=== PATIENT | female | born 1990 | race Two or more races ===

== ENCOUNTER 2021-06-02 08:15 | Outpatient (REF) | payer OTHER, SELFPAY ==
[2021-06-02 09:25] LABS: COVID-19 Test Positive (Negative); IDNOW Serial# 55D5AD1C
== END 2021-06-02 08:16 | disposition home or self-care (01) ==
LOC: HO.LAB 08:15
PROVIDERS: Visit Provider Internal Medicine
DX: Z20.822 Contact with and (suspected) exposure to COVID-19 (principal)
CPT/HCPCS: 36415; 87635; C9803

== ENCOUNTER 2021-06-14 08:22 | Outpatient (REF) | payer OTHER, SELFPAY ==
[2021-06-14 09:12] LABS: Binax Internal Control QC Valid; Binax Now Covid-19 Ag Negative (Negative)
== END 2021-06-14 08:23 | disposition home or self-care (01) ==
LOC: HO.LAB 08:22
PROVIDERS: Visit Provider Internal Medicine
DX: Z20.822 Contact with and (suspected) exposure to COVID-19 (principal)
CPT/HCPCS: C9803

== ENCOUNTER 2021-10-17 17:38 | Emergency (ER) | payer OTHER, SELFPAY ==
--- NOTE | 2021-10-17 | ECG_ITS ---
Test Reason : chest pressure Blood Pressure : / mmHG Vent. Rate : 083 BPM Atrial Rate : 083 BPM P-R Int : 162 ms QRS Dur : 094 ms QT Int : 360 ms P-R-T Axes : 028 011 018 degrees QTc Int : 423 ms Normal sinus rhythm Normal ECG When compared with ECG of 29-FEB-2020 20:44, No significant change was found Referred By: Generic ED Physician Electronically Signed By:DEMARCUS KAISER
--- NOTE | ~2021-10-17 | XR_ITS ---
EXAMINATION: PORTABLE CHEST 1 VIEW CLINICAL INFORMATION: chest pressure . COMPARISON: No recent pertinent prior studies are available for comparison. TECHNIQUE: Portable frontal view of the chest was obtained. FINDINGS: The lungs are mildly hypoexpanded. No focal infiltrate, effusion, edema, or pneumothorax. Cardiac and mediastinal silhouettes are within normal limits for technique. No acute bony abnormality seen. XR/XR chest 1V IMPRESSION: Mildly hypoexpanded but no acute process otherwise.
[2021-10-17 17:43] VITALS: BP 185/82; PULSE 85; RESP 18; TEMP 36.1; O2SAT 98; BMI 32.5
[2021-10-17 17:56] LABS: MANUAL DIFF FLAG NO
[2021-10-17 17:59] LABS: Basophils Absolute Auto 0.1 X10*3/uL (0.0-0.2); Basophils Percent Auto 0.6 % (0-2); Eosinophils Absolute Auto 0.2 X10*3/uL (0.0-0.4); Eosinophils Percent Auto 1.2 % (0-4); Hematocrit 34.8 % (37.0-47.0); Hemoglobin 11.5 g/dl (12.0-16.0); Imm Gran Abs Auto 0.05 X10*3/uL (0.00-0.03); Imm Gran Pct Auto 0.4 % (0.0-0.4); Lymphocytes Absolute Auto 2.9 X10*3/uL (1.2-4.9); Lymphocytes Percent Auto 20.8 % (20-40); Mean Corpuscular Hemoglobin 29.7 pg (27.0-33.0); Mean Corpuscular Volume 89.9 fL (80.0-98.0); Mean Platelet Volume 8.6 fL (9.4-12.3); Monocytes Absolute Auto 0.7 X10*3/uL (0.1-1.2); Monocytes Percent Auto 5.2 % (2-11); Neutrophils Absolute Auto 10.2 x10*3/uL (2.0-8.3); Neutrophils Percent Auto 71.8 % (45-73); Platelet Count 343 X10*3/uL (160-400); Red Blood Count 3.87 X10*6/uL (4.20-5.50); Red Cell Distribution Width 13.3 % (11.0-16.0); White Blood Count 14.1 X10*3/uL (4.8-10.8)
[2021-10-17 18:14] LABS: Anion Gap 11 (12-20); Blood Urea Nitrogen 9 mg/dL (9-16); Calcium 9.7 mg/dL (8.4-10.2); Carbon Dioxide 25 mmol/L (22-29); Chloride 104 mmol/L (96-108); Creatinine Clr Calc Pharmacy 156.9; Estimated Glomerular Filt Rate > 60; Glucose Random 92 mg/dL (60-115); Potassium 3.8 mmol/L (3.3-5.1); Sodium 136 mmol/L (135-145)
[2021-10-17 18:19] LABS: Troponin-I High Sensitivity < 3.5 ng/L (<3.5-17.0)
== END 2021-10-17 22:15 | disposition left against medical advice (07) ==
PROVIDERS: Emergency Provider Emergency Medicine; PCP Internal Medicine
DX: R07.89 Other chest pain (principal); M54.2 Cervicalgia; R51.9 Headache, unspecified; Z79.899 Other long term (current) drug therapy
CPT/HCPCS: 36415; 71045; 80048; 84484; 85025; 93005; 99281; 99283

== ENCOUNTER 2021-10-18 09:56 | Emergency (ER) | payer OTHER, SELFPAY ==
--- NOTE | ~2021-10-18 | CT_ITS ---
EXAMINATION: CT HEAD WITHOUT CONTRAST CLINICAL INFORMATION: Headache. Tongue and bilateral hand numbness. COMPARISON: Radius head CT February 2020 TECHNIQUE: Contiguous axial imaging was performed from the skull base to vertex without intravenous administration of contrast. This CT examination was performed using dose optimization techniques as appropriate, variously including the following: *Automated exposure control *Adjustment of mA and/or kV according to patient size (this includes techniques or standardized protocols for targeted exams where dose is matched to indication/reason for exam; i.e. extremities or head) *Use of iterative reconstruction technique DLP: 795 mGy-cm FINDINGS: There is no evidence of acute intracranial hemorrhage or territorial infarction. No abnormal mass effect or midline shift is seen. Thakur to white matter differentiation is well preserved. No extra-axial fluid collections are identified. The ventricles are normal in size. There is no abnormal attenuation within the brain parenchyma. The osseous structures and soft tissues are normal. The mastoid air cells and visualized portions of the paranasal sinuses are well aerated. CT/CT head/brain wo con IMPRESSION: No acute intracranial pathology.
[2021-10-18 10:34] VITALS: BP 149/80; PULSE 65; RESP 18; TEMP 35.7; O2SAT 99; BMI 32.5
[2021-10-18 11:00] LABS: COVID-19 Test Negative (Negative)
--- NOTE | 2021-10-18 11:18 | ECG_ITS ---
Test Reason : CHEST PAIN Blood Pressure : / mmHG Vent. Rate : 057 BPM Atrial Rate : 057 BPM P-R Int : 162 ms QRS Dur : 102 ms QT Int : 442 ms P-R-T Axes : 023 017 018 degrees QTc Int : 430 ms Sinus bradycardia with sinus arrhythmia Otherwise normal ECG When compared with ECG of 17-OCT-2021 17:42, No significant change was found Referred By: Lauryn Tucker Electronically Signed By:DEMARCUS KAISER
--- NOTE | 2021-10-18 11:20 | ED_ITS ---
HPI - General Adult General Chief complaint: General Medical Stated complaint: headache blister on tongue Time Seen by Provider: 10/18/21 11:07 Source: patient Mode of arrival: ambulatory History of Present Illness HPI narrative: 31-year-old female with no significant past medical history presenting to the ED complaining of headache radiating down left neck/chest with associated tongue numbness beginning yesterday. Admits symptoms improving since onset. States presented to ED yesterday however LWT'd secondary to wait time. Also reports lightheadedness, paresthesias to bilateral hands, and intermittent visual field changes (denies at present). Also reports low back pain radiating down LLE. Denies injury/trauma or fall, weakness, urinary incontinence/retention. Denies taking AC Onset (ago): day(s) Related Data Previous Rx's Medication Instructions Recorded cetirizine 10 mg capsule (Zyrtec) 10 mg PO DAILY #30 cap 03/09/20 cyclobenzaprine 5 mg tablet 5 mg PO Q8H PRN 5 Days #14 tab 10/18/21 lidocaine 5 % topical patch 1 patch TOPICAL DAILY PRN #30 ea 10/18/21 (Lidoderm) MDD remove after 12 hours naproxen 500 mg tablet 500 mg PO BID PRN 10 Days #20 tab 10/18/21 Allergies Allergy/AdvReac Type Severity Reaction Status Date / Time No Known Allergies Allergy Verified 10/18/21 10:33 [No Known Allergies*] Review of Systems Review of Systems: Constitutional: No Fever, No Chills, No Fatigue, No Malaise ENT/Mouth: No Ear Pain, No Nasal Congestion, No Sinus Pain, No Hoarseness, No sore throat, No Rhinorrhea, No Swallowing Difficulty Eyes: No Eye Pain, No Swelling, No Redness, +Vision Changes (intermittent/resolved) Cardiovascular: No Chest Pain, No SOB, No Edema, No Palpitations Respiratory: No Cough, No Sputum, No Dyspnea Gastrointestinal: No Nausea, No Vomiting, No Diarrhea, No Constipation, No Abdominal pain Genitourinary: No Dysuria, No Urinary Frequency, No Hematuria, No Urinary In continence/retention, No Flank Pain, No Urinary Flow Changes, No Hesitancy Musculoskeletal: No joint pain, No Myalgias, No Joint Swelling Skin: No Skin Lesions, No rash Neuro: No Weakness, + Numbness, + Paresthesias, No Loss of Consciousness, + lightheadedness, + Headache Yes all other systems are reviewed and are negative Neurologic: Denies Abnormal speech present [facility] Past Medical History Attestation statement: The following information was validated with the patient. Social History Social History Advance Directives: No Advance Directives Information Provided: No Physical Exam ED Vital Signs: Vital Signs - 24 hr 10/18/21 10:34 10/18/21 12:01 Temperature 96.2 F L 98.4 F Pulse Rate 65 65 Respiratory Rate 18 14 Blood Pressure 149/80 H 133/61 Pulse Oximetry 99 98 BMI result Body Mass Index 32.5 Const General: cooperative, healthy appearing, no acute distress, well developed, alert and awake Orientation/consciousness: patient oriented x3 Limitations: no limitations HENMT Head: Yes normal to inspection and Yes atraumatic Ears: hearing grossly normal bilaterally General nose exam: Normal external nose present Face and sinus: Yes normal facial exam Throat: Yes posterior oropharynx normal, Yes tonsils normal, Yes uvula midline, No peritonsillar mass and No uvula laterally displaced Eyes General: appearance normal, both eyes and all related structures Pupils: Equal, round and reactive pupils present EOM: EOMs intact bilaterally Neck Other: No midline cervical spinous tenderness or reproducible left-sided tenderness Neck: Yes normal visual inspection, Yes full ROM and Yes no meningeal signs Resp Effort & Inspection: normal respiratory effort and no respiratory distress Auscultation: clear to auscultation bilaterally Cardio Rate: regular rate Heart sounds: S1 normal heart sound present and S2 normal heart sound present GI Inspection: Yes normal to inspection Palpation (GI): Soft to palpation, nontender, no guarding and not rigid General: Yes no CVA tenderness Back/Spine/Pelvis Other: No midline thoracic/lumbar spinous tenderness/step-off or deformity Back: no CVA tenderness Skin Rashes: no rashes Wounds: no wounds Neuro General: patient oriented x3, gait normal, tone normal, moves all extremities, no meningeal signs, no focal motor deficits and CN's II-XI intact bilaterally Cranial nerves: Yes CN's II-XII intact bilaterally, Yes Equal, round and reactive pupils present and Yes Bilaterally intact EOM present Cognition (Neuro): normal cognition Speech: No Abnormal speech present Gait exam (Neuro): Normal gait present Motor exam (neuro): 5/5 motor strength present throughout, Pronator motor function not present and no tremor noted Extrem General: Yes normal to inspection Course Course Course Narrative: -labs unremarkable. Troponin negative. CT head/brain wo con IMPRESSION: No acute intracranial pathology. >> results discussed with patient including worrisome signs and symptoms and strict return precautions in you to close follow-up with PCP Medical Decision Making MDM Narrative Medical decision making narrative: 31-year-old female with no significant past medical history presenting to the ED complaining of headache radiating down left neck/chest with associated tongue numbness beginning yesterday. Also reports lightheadedness, paresthesias to bila teral hands, and intermittent visual field changes. On exam VSS, NAD, nontoxic appearing, no focal neuro deficits, no midline spinous tenderness throughout, no red flag symptoms. Concern for complicated migraine headache vs paresthesias vs ?ICH. Symptoms atypical for CVA/TIA. Lower concern for cervical dissection/CVT Plan: EKG, labs, head CT Case discussed with Dr. Bernard who is in agreement with plan Medical Records Medical records reviewed: Yes I reviewed the patient's medical records. Lab Data Lab results reviewed: Yes I reviewed the patient's lab results. Result diagrams: 10/18/21 11:50 10/18/21 11:50 Labs: Lab Results 10/18/21 10/18/21 10/18/21 Range/Units 10:39 11:50 11:50 WBC 10.6 (4.8-10.8) X10*3/uL RBC 3.94 L (4.20-5.50) X10*6/uL Hgb 11.7 L (12.0-16.0) g/dl Hct 35.3 L (37.0-47.0) % MCV 89.6 (80.0-98.0) fL MCH 29.7 (27.0-33.0) pg MCHC 33.1 (31.0-35.0) g/dl RDW 13.2 (11.0-16.0) % Plt Count 345 (160-400) X10*3/uL MPV 8.6 L (9.4-12.3) fL Immature Gran % (Auto) 0.3 (0.0-0.4) % Neut % (Auto) 74.7 H (45-73) % Lymph % (Auto) 17.5 L (20-40) % [place] % (Auto) 6.1 (2-11) % Eos % (Auto) 0.8 (0-4) % Baso % (Auto) 0.6 (0-2) % Lymph # (Auto) 1.9 (1.2-4.9) X10*3/uL [place] # (Auto) 0.7 (0.1-1.2) X10*3/uL Eos # (Auto) 0.1 (0.0-0.4) X10*3/uL Baso # (Auto) 0.1 (0.0-0.2) X10*3/uL Abs Immat Gran (auto) 0.03 (0.00-0.03) X10*3/uL Absolute Neuts (auto) 7.9 (2.0-8.3) x10*3/uL Absolute Nucleated RBC 0.000 (0.0-0.012) X10*3/uL Nucleated RBC % (auto) 0.0 (0.0-0.2) /100WBC Sodium 138 (135-145) mmol/L Potassium 3.9 (3.3-5.1) mmol/L Chloride 106 (96-108) mmol/L Carbon Dioxide 26 (22-29) mmol/L Anion Gap 10 L (12-20) BUN 8 L (9-16) mg/dL Creatinine 0.62 (0.5-1.4) mg/dL Estim Creat Clear Calc 179.7 Estimated GFR > 60 Random Glucose 101 (60-115) mg/dL Calcium 9.4 (8.4-10.2) mg/dL Magnesium 2.0 (1.6-2.6) mg/dL Total Bilirubin 0.4 (0.0-1.0) mg/dL Direct Bilirubin < 0.2 (0.0-0.5) mg/dL AST 13 (5-31) U/L ALT 14 (0-31) U/L Alkaline Phosphatase 75 (39-117) U/L Troponin I High Sens (<3.5-17.0) ng/L Total Protein 7.3 (6.5-8.0) g/dL Albumin 3.9 (3.5-5.0) g/dL COVID-19 ([facility]) Negative (Negative) COVID-19 Clin Com See Note 10/18/21 Range/Units 11:50 WBC (4.8-10.8) X10*3/uL RBC (4.20-5.50) X10*6/uL Hgb (12.0-16.0) g/dl Hct (37.0-47.0) % MCV (80.0-98.0) fL MCH (27.0-33.0) pg MCHC (31.0-35.0) g/dl RDW (11.0-16.0) % Plt Count (160-400) X10*3/uL MPV (9.4-12.3) fL Immature Gran % (Auto) (0.0-0.4) % Neut % (Auto) (45-73) % Lymph % (Auto) (20-40) % [place] % (Auto) (2-11) % Eos % (Auto) (0-4) % Baso % (Auto) (0-2) % Lymph # (Auto) (1.2-4.9) X10*3/uL [place] # (Auto) (0.1-1.2) X10*3/uL Eos # (Auto) (0.0-0.4) X10*3/uL Baso # (Auto) (0.0-0.2) X10*3/uL Abs Immat Gran (auto) (0.00-0.03) X10*3/uL Absolute Neuts (auto) (2.0-8.3) x10*3/uL Absolute Nucleated RBC (0.0-0.012) X10*3/uL Nucleated RBC % (auto) (0.0-0.2) /100WBC Sodium (135-145) mmol/L Potassium (3.3-5.1) mmol/L Chloride (96-108) mmol/L Carbon Dioxide (22-29) mmol/L Anion Gap (12-20) BUN (9-16) mg/dL Creatinine (0.5-1.4) mg/dL Estim Creat Clear Calc Estimated GFR Random Glucose (60-115) mg/dL Calcium (8.4-10.2) mg/dL Magnesium (1.6-2.6) mg/dL Total Bilirubin (0.0-1.0) mg/dL Direct Bilirubin (0.0-0.5) mg/dL AST (5-31) U/L ALT (0-31) U/L Alkaline Phosphatase (39-117) U/L Troponin I High Sens < 3.5 (<3.5-17.0) ng/L Total Protein (6.5-8.0) g/dL Albumin (3.5-5.0) g/dL COVID-19 ([facility]) (Negative) COVID-19 Clin Com Discharge Plan Discharge Clinical Impression: Headache, Paresthesia, Back pain Patient Disposition: Home, Self-Care Instructions: Acute Headache (DC), Back Pain (ED) Additional Instructions: Your blood work and head CT were reassuring. your back pain is likely musculoskeletal. If headache persists or worsens, you have vision change/loss, weakness or persistent nausea/vomiting please return to the emergency department Your pain is likely musculoskeletal Flexeril is a muscle relaxer, take at night as it makes you drowsy, do not drive, drink alcohol, or operate machinery while taking it Naproxen as an anti-inflammatory / pain medication, take with food Lidoderm patches are numbing patches, apply to painful area In addition take Tylenol at home If symptoms persist or worsen, pain becomes unbearable, you developed urinary retention or incontinence, or weakness return to the ED Prescriptions: New lidocaine [Lidoderm] 5 % adhesive patch,medicated 1 patch topical DAILY MDD remove after 12 hours PRN (Reason: pain) Qty: 30 0RF Rx Instructions: leave on most painful area for up to 12 hrs naproxen 500 mg tablet 500 mg PO BID PRN (Reason: pain) 10 Days Qty: 20 0RF cyclobenzaprine 5 mg tablet 5 mg PO Q8H PRN (Reason: pain (scale score 7-10)) 5 Days Qty: 14 0RF No Action Zyrtec 10 mg capsule 10 mg PO DAILY Qty: 30 0RF Referrals: Po,Kendra Gutierrez MD [Primary Care Provider] - 2 days
[2021-10-18 11:54] LABS: MANUAL DIFF FLAG NO
[2021-10-18 12:01] VITALS: BP 133/61; PULSE 65; RESP 14; TEMP 36.9; O2SAT 98
--- NOTE | 2021-10-18 12:02 | PC.NURSE ---
pt describing mult intermittent sx including lower back pain, headache, numbness in tongue, blurred vision. has no noted neuro deficits at this time. awaits lab results and ct. ambulated to bed with steady gait.
[2021-10-18 12:13] LABS: Alanine Aminotransferase 14 U/L (0-31); Albumin Level 3.9 g/dL (3.5-5.0); Alkaline Phosphatase 75 U/L (39-117); Anion Gap 10 (12-20); Aspartate Amino Transferase 13 U/L (5-31); Bilirubin Direct < 0.2 mg/dL (0.0-0.5); Bilirubin Total 0.4 mg/dL (0.0-1.0); Blood Urea Nitrogen 8 mg/dL (9-16); Calcium 9.4 mg/dL (8.4-10.2); Carbon Dioxide 26 mmol/L (22-29); Chloride 106 mmol/L (96-108); Creatinine Clr Calc Pharmacy 179.7; Estimated Glomerular Filt Rate > 60; Glucose Random 101 mg/dL (60-115); Potassium 3.9 mmol/L (3.3-5.1); Sodium 138 mmol/L (135-145); Total Protein 7.3 g/dL (6.5-8.0)
[2021-10-18 12:15] LABS: Basophils Absolute Auto 0.1 X10*3/uL (0.0-0.2); Basophils Percent Auto 0.6 % (0-2); Eosinophils Absolute Auto 0.1 X10*3/uL (0.0-0.4); Eosinophils Percent Auto 0.8 % (0-4); Hematocrit 35.3 % (37.0-47.0); Hemoglobin 11.7 g/dl (12.0-16.0); Imm Gran Abs Auto 0.03 X10*3/uL (0.00-0.03); Imm Gran Pct Auto 0.3 % (0.0-0.4); Lymphocytes Absolute Auto 1.9 X10*3/uL (1.2-4.9); Lymphocytes Percent Auto 17.5 % (20-40); Mean Corpuscular HGB Conc 33.1 g/dl (31.0-35.0); Mean Corpuscular Hemoglobin 29.7 pg (27.0-33.0); Mean Corpuscular Volume 89.6 fL (80.0-98.0); Mean Platelet Volume 8.6 fL (9.4-12.3); Monocytes Absolute Auto 0.7 X10*3/uL (0.1-1.2); Monocytes Percent Auto 6.1 % (2-11); Neutrophils Absolute Auto 7.9 x10*3/uL (2.0-8.3); Neutrophils Percent Auto 74.7 % (45-73); Platelet Count 345 X10*3/uL (160-400); Red Blood Count 3.94 X10*6/uL (4.20-5.50); Red Cell Distribution Width 13.2 % (11.0-16.0); White Blood Count 10.6 X10*3/uL (4.8-10.8)
[2021-10-18 12:20] LABS: Troponin-I High Sensitivity < 3.5 ng/L (<3.5-17.0)
[2021-10-18] MEDS: Butalb/Acetamin/Caff 50/325/40 TABLET 1 TAB PO (12:46)
== END 2021-10-18 13:15 | disposition home or self-care (01) ==
PROVIDERS: Physician Assistant; Emergency Provider Emergency Medicine; PCP Internal Medicine
DX: R51.9 Headache, unspecified (principal); R07.89 Other chest pain; M54.50 Low back pain, unspecified; Z20.822 Contact with and (suspected) exposure to COVID-19; Z79.899 Other long term (current) drug therapy
CPT/HCPCS: 36415; 70450; 80048; 80076; 83735; 84484; 85025; 87635; 93005; 99283; 99284

== ENCOUNTER 2022-02-10 13:56 | Outpatient (REF) | payer OTHER, SELFPAY ==
[2022-02-10 14:48] LABS: Influenza A PCR NEGATIVE (Negative); Influenza B PCR NEGATIVE (Negative); Resp Syncy Virus RNA Qual PCR NEGATIVE (Negative); SARS COV2 PCR INHOUSE NEGATIVE (Negative)
== END 2022-02-10 13:57 | disposition home or self-care (01) ==
LOC: HO.LNP 13:56
PROVIDERS: Visit Provider Internal Medicine
DX: Z20.822 Contact with and (suspected) exposure to COVID-19 (principal); R43.9 Unspecified disturbances of smell and taste
CPT/HCPCS: 0241U

== ENCOUNTER 2022-02-27 | Outpatient (REF) | payer OTHER, SELFPAY ==
[2022-03-03 13:40] LABS: H Pylori Breath Test Negative (Negative)
== END 2022-02-27 00:01 | disposition home or self-care (01) ==
LOC: HO.LNP
PROVIDERS: Visit Provider Physician Assistant Surgical
DX: Z01.818 Encounter for other preprocedural examination (principal)
CPT/HCPCS: 83013

== ENCOUNTER → 2022-02-27 16:05 | Outpatient (BNVA) | payer OTHER, SELFPAY | PROVIDERS: PCP Internal Medicine; Visit Provider Physician Assistant Surgical | DX: Z11.0 Encounter for screening for intestinal infectious diseases (principal) | CPT/HCPCS: 99211 ==

== ENCOUNTER 2022-03-14 16:18 | Emergency (ER) | payer OTHER, SELFPAY ==
[2022-03-14 16:23] VITALS: BP 128/70; PULSE 61; RESP 16; TEMP 36.7; O2SAT 99; BMI 32.5
== END 2022-03-14 19:04 | disposition left against medical advice (07) ==
PROVIDERS: Emergency Provider Emergency Medicine; PCP Internal Medicine
DX: R21 Rash and other nonspecific skin eruption (principal)
CPT/HCPCS: 99281

== ENCOUNTER → 2022-03-15 15:20 | Outpatient (BNVA) | payer OTHER, SELFPAY | PROVIDERS: PCP Internal Medicine; Referring Provider Internal Medicine; Visit Provider Physician Assistant Surgical | DX: E66.9 Obesity, unspecified (principal); I10 Essential (primary) hypertension; Z68.33 Body mass index [BMI] 33.0-33.9, adult; Z71.3 Dietary counseling and surveillance | CPT/HCPCS: 99212 ==

== ENCOUNTER 2022-03-17 08:58 | Outpatient (REF) | payer OTHER, SELFPAY ==
--- NOTE | ~2022-03-17 | US_ITS ---
EXAMINATION: US COMPLETE ABDOMEN WITH LIVER ELASTOGRAPHY CLINICAL INFORMATION: Obesity, unspecified. COMPARISON: None TECHNIQUE: Real-time imaging of the abdominal viscera. Noninvasive ultrasound liver fibrosis assessment is performed using Alistair ElastPQ point quantification shear wave elastography (2D-SWE) with a C5-2 MHz transducer. Multiple elastography samples are obtained. FINDINGS: PANCREAS: Normal. The visualized pancreatic head and body are normal in appearance. The remainder of the pancreas is obscured from visualization by the overlying bowel gas. ABDOMINAL AORTA: The proximal, middle, and distal aortic segments are normal in caliber. INFERIOR VENA CAVA: Visualized portions are normal. LIVER: The liver demonstrates normal size, contour and echogenicity. No focal lesion or intrahepatic biliary duct dilatation. The right lobe measures 16.3 cm in length. The left lobe measures 10.3 cm in length. Portal flow is hepatopetal. Shear wave liver elastography median stiffness is 1.84 m/s (reference: Normal median stiffness is 1.3 m/s or less). IQR/median stiffness to assess sampling precision is 0.1 (reference: Good quality data set is IQR/median stiffness of 0.15 or less). GALLBLADDER: Normal. The gallbladder is physiologically distended without evidence of stones, sludge, polyps, wall thickening or pericholecystic fluid. COMMON BILE DUCT: Normal in caliber measuring 0.5 cm in diameter. RIGHT KIDNEY: Normal. No hydronephrosis. No renal calculi or focal parenchymal lesions. The kidney measures 12.4 cm in maximum dimension. LEFT KIDNEY: Normal. No hydronephrosis. No renal calculi or focal parenchymal lesions. The kidney measures 12.0 cm in maximum dimension. SPLEEN: The spleen is upper limits of normal measuring 12.8 cm in maximum dimension. FREE FLUID: None. US/US abdomen comp w elastography IMPRESSION: Mild left renal pelvic fullness. No echogenic renal calculi The spleen is upper limits of normal in size. The rest of the abdominal ultrasound is unremarkable. Liver elastography: Median liver stiffness measures 1.84 m/s corresponding to cACLD (suggestive) REFERENCE: Society of Radiologists in Ultrasound Liver Stiffness Thresholds (2020): LIVER STIFFNESS THRESHOLDS: *Liver Stiffness equal or less than 1.3 m/s: High probability of being normal. *Liver Stiffness less than 1.7 m/s: In the absence of other known clinical signs, rules out compensated advanced chronic liver disease. *Liver Stiffness 1.7-2.1 m/s: Suggestive of compensated advanced chronic liver disease but need further test for confirmation. *Liver Stiffness over 2.1 m/s: Rules in compensated advanced chronic liver disease. *Liver Stiffness over 2.4 m/s: Suggestive of clinically significant portal hypertension. QUALITY OF DATA SET: *IQR/Median value equal or less than 0.15 implies a quality data set. *IQR/Median value over 0.15 implies a poor quality data set. SIGNIFICANT CHANGE FROM PRIOR EXAM: Significant change if liver stiffness measurement is 10% or greater from prior exam. OTHER CONSIDERATIONS: The stage of liver fibrosis may be overestimated in the setting of acute hepatitis, liver inflammation, elevated liver function tests, hepatic vascular congestion, obstructive cholestasis, non-fasting state, and infiltrative diseases such as amyloidosis and lymphoma. In some patients with NAFLD, the liver stiffness thresholds for compensated advanced chronic liver disease may be lower. In causes other than viral hepatitis and NAFLD, liver stiffness thresholds are not well established.
[2022-03-17 10:15] LABS: MANUAL DIFF FLAG NO
[2022-03-17 10:35] LABS: Basophils Absolute Auto 0.1 X10*3/uL (0.0-0.2); Basophils Percent Auto 0.7 % (0-2); Eosinophils Absolute Auto 0.1 X10*3/uL (0.0-0.4); Eosinophils Percent Auto 1.4 % (0-4); Hemoglobin 11.7 g/dl (12.0-16.0); Imm Gran Abs Auto 0.02 X10*3/uL (0.00-0.03); Imm Gran Pct Auto 0.3 % (0.0-0.4); Lymphocytes Absolute Auto 1.7 X10*3/uL (1.2-4.9); Lymphocytes Percent Auto 22.7 % (20-40); Mean Corpuscular HGB Conc 33.4 g/dl (31.0-35.0); Mean Corpuscular Hemoglobin 29.5 pg (27.0-33.0); Mean Corpuscular Volume 88.4 fL (80.0-98.0); Mean Platelet Volume 8.9 fL (9.4-12.3); Monocytes Absolute Auto 0.5 X10*3/uL (0.1-1.2); Monocytes Percent Auto 6.6 % (2-11); Neutrophils Percent Auto 68.3 % (45-73); Platelet Count 359 X10*3/uL (160-400); Red Blood Count 3.96 X10*6/uL (4.20-5.50); Red Cell Distribution Width 12.8 % (11.0-16.0); White Blood Count 7.3 X10*3/uL (4.8-10.8)
[2022-03-17 10:42] LABS: Estimated Average Glucose 88 mg/dL; Hemoglobin A1c % 4.7 %
[2022-03-17 11:06] LABS: Alanine Aminotransferase 11 U/L (0-31); Albumin Level 4.2 g/dL (3.5-5.0); Alkaline Phosphatase 76 U/L (39-117); Anion Gap 15 (12-20); Aspartate Amino Transferase 13 U/L (5-31); Bilirubin Total 0.4 mg/dL (0.0-1.0); Blood Urea Nitrogen 10 mg/dL (9-16); C Reactive Protein 1.81 mg/dL (< or = 0.50); Calcium 9.2 mg/dL (8.4-10.2); Carbon Dioxide 24 mmol/L (22-29); Chloride 104 mmol/L (96-108); Cholesterol 173 mg/dL; Estimated Glomerular Filt Rate > 60; Glucose Fasting 94 mg/dL (60-99); HDL Cholesterol 33 mg/dL; Iron 38 mcg/dL (30-160); LDL Cholesterol Calculated 127 mg/dl; Percent Iron Saturation 12 % (15-50); Potassium 4.1 mmol/L (3.3-5.1); Sodium 139 mmol/L (135-145); Total Iron Binding Capacity 306 mcg/dL (228-428); Total Protein 7.6 g/dL (6.5-8.0); Triglycerides 68 mg/dL; Unsaturated Iron Binding 268 ug/dL
[2022-03-17 11:30] LABS: Ferritin 67 ng/mL (10-122); Insulin 10 uU/mL (2-29); TSH reflex Free T4 0.31 uIU/mL (0.32-4.0); Vitamin D 25-OH Total 18.7 ng/mL (>30)
[2022-03-17 11:32] LABS: Folate 15.7 ng/mL (> or = 4.0); Vitamin B12 476 pg/mL (200-900)
[2022-03-17 12:10] LABS: Free T4 (Free Thyroxine) 1.05 ng/dL (0.71-1.85)
[2022-03-19 15:42] LABS: Calcium (PTHI) 9.4 mg/dL (8.6-10.2); PTHI 53 pg/mL (16-77)
[2022-03-22 00:02] LABS: Zinc 65 mcg/dL (60-130)
[2022-03-22 09:52] LABS: Vitamin A 38 mcg/dL (38-98)
[2022-03-22 16:07] LABS: Vitamin B1 8 nmol/L (8-30)
== END 2022-03-17 08:59 | disposition home or self-care (01) ==
LOC: HO.US 08:58
PROVIDERS: Absent Provider Nurse Practitioner Family; Visit Provider Physician Assistant Surgical
DX: Z00.00 Encounter for general adult medical examination without abnormal findings (principal); E66.9 Obesity, unspecified; I10 Essential (primary) hypertension; K21.9 Gastro-esophageal reflux disease without esophagitis
CPT/HCPCS: 36415; 76705; 76981; 80053; 80061; 82306; 82607; 82728; 82746; 83036; 83525; 83540; 83970; 84425; 84439; 84443; 84590; 84630; 85025; 85027; 86140

== ENCOUNTER → 2022-04-11 16:05 | Outpatient (BNVA) | payer OTHER, SELFPAY | PROVIDERS: PCP Internal Medicine; Referring Provider Physician Assistant Surgical; Visit Provider Dietitian, Registered | DX: E66.9 Obesity, unspecified (principal); Z68.31 Body mass index [BMI] 31.0-31.9, adult | CPT/HCPCS: 97802 ==

== ENCOUNTER → 2022-04-21 09:30 | Outpatient (BNVA) | payer OTHER, SELFPAY | PROVIDERS: PCP Internal Medicine; Visit Provider Advanced Practice Midwife | DX: Z30.46 Encounter for surveillance of implantable subdermal contraceptive (principal) | CPT/HCPCS: 99212 ==

== ENCOUNTER → 2022-05-02 16:00 | Outpatient (BNVA) | payer OTHER, SELFPAY | PROVIDERS: PCP Internal Medicine; Referring Provider Physician Assistant Surgical; Visit Provider Counselor Mental Health | DX: F41.1 Generalized anxiety disorder (principal); E66.9 Obesity, unspecified | CPT/HCPCS: 90791 ==

== ENCOUNTER 2022-05-05 08:08 | Outpatient (REF) | payer OTHER, SELFPAY ==
--- NOTE | ~2022-05-05 | FL_ITS ---
EXAMINATION: XR FLUOROSCOPY UPPER GI WITH AIR CLINICAL INFORMATION: Obesity. COMPARISON: None. TECHNIQUE: Routine upper GI air-contrast study was done in upright and lying position. FINDINGS: Following oral administration of thick barium and effervescent granules there is normal propagation bolus from the oral cavity through the pharynx, esophagus into stomach without any evidence of narrowing, stricture or obstruction. No extrinsic compression seen. On placing patient supine and prone lying the course, caliber and peristalsis of the stomach is normal. There is a mild gastroesophageal reflux without hiatal hernia. The mucosal pattern of the esophagus, stomach and the duodenum is normal. FLUOROSCOPY TIME: 1.3 minutes. DOSE AREA PRODUCT: 34.284 uGy-m2 (microgray-meter squared) FL/FL upper GI w air IMPRESSION: Mild gastroesophageal reflux in supine view otherwise unremarkable upper GI exam.
--- NOTE | ~2022-05-05 | XR_ITS ---
EXAMINATION: XR CHEST CLINICAL INFORMATION: Obesity. COMPARISON: None TECHNIQUE: 2 views of the chest were obtained. FINDINGS: No significant abnormality is noted involving the heart, lungs, mediastinum, bony thorax or soft tissues. XR/XR chest 2V IMPRESSION: Unremarkable chest examination.
== END 2022-05-05 08:09 | disposition home or self-care (01) ==
LOC: HO.XRAY 08:08
PROVIDERS: PCP Nurse Practitioner Family; Visit Provider Physician Assistant Surgical
DX: E66.9 Obesity, unspecified (principal); I10 Essential (primary) hypertension
CPT/HCPCS: 71046; 74246

== ENCOUNTER → 2022-05-08 10:23 | Outpatient (BNVA) | payer OTHER, SELFPAY | PROVIDERS: PCP Internal Medicine; Referring Provider Internal Medicine; Visit Provider Surgery | DX: E66.9 Obesity, unspecified (principal); E78.00 Pure hypercholesterolemia, unspecified; I10 Essential (primary) hypertension; F41.1 Generalized anxiety disorder; Z68.30 Body mass index [BMI] 30.0-30.9, adult | CPT/HCPCS: 99202 ==

== ENCOUNTER → 2022-06-06 12:32 | Outpatient (BNVA) | payer OTHER, SELFPAY | PROVIDERS: PCP Internal Medicine; Visit Provider Physician Assistant Surgical | DX: Z13.89 Encounter for screening for other disorder (principal) ==

== ENCOUNTER → 2022-06-09 08:18 | Outpatient (BNVA) | payer OTHER, SELFPAY | PROVIDERS: PCP Internal Medicine; Visit Provider Surgery | DX: E66.9 Obesity, unspecified (principal); F41.1 Generalized anxiety disorder; E78.00 Pure hypercholesterolemia, unspecified; I10 Essential (primary) hypertension; Z68.29 Body mass index [BMI] 29.0-29.9, adult | CPT/HCPCS: 99212 ==

== ENCOUNTER 2022-06-21 06:04 | Day surgery (SDC) | payer OTHER, SELFPAY ==
[2022-06-12 11:14] VITALS: BMI 29.2
--- NOTE | 2022-06-20 | ECG_ITS ---
Test Reason : HTN HLD OBESITY Blood Pressure : / mmHG Vent. Rate : 059 BPM Atrial Rate : 059 BPM P-R Int : 168 ms QRS Dur : 094 ms QT Int : 412 ms P-R-T Axes : 009 016 010 degrees QTc Int : 407 ms Sinus bradycardia with sinus arrhythmia Otherwise normal ECG When compared with ECG of 18-OCT-2021 11:23, No significant change was found Referred By: Asher Parker Electronically Signed By:DIMPLE CORONA MD
--- NOTE | 2022-06-20 10:26 | P.CONAN_ITS ---
Documented by User: Karla Conte NP 06/20/22 13:35 HPI - Anesthesia Eval Consult details Narrative: 32yo F for Gastrectomy Sleeve,EGD,poss diaphragmatic hernia,poss ventral hernia,poss open, PMFSH Active Problems Active Problems: All Active Problems (Updated 06/12/22 @ 10:51 by Maria D Coreas RN) Depressed mood (Acute) Vertigo (Acute) Upper respiratory tract infection (Acute) Adult general medical exam (Acute) Choking sensation (Acute) Encounter for monitoring of etonogestrel implant (Acute) Generalized anxiety disorder (Acute) Vitamin D deficiency (Acute) Hypertension (Acute) Hypercholesterolemia (Acute) Obesity (BMI 30-39.9) (Acute) Past Medical History Medical History Allergic otitis media of both ears Anxiety Gestational hypertension Hypercholesterolemia Hypertension Insomnia Obesity (BMI 30-39.9) Vitamin D deficiency Surgical History Surgical History History of cholecystectomy Right ovarian cyst Social History [facility] Are you a primary long term care phlebotomist to a significant other at home: No Do you presently have visiting nurse or other home services: No Alcohol intake: never Patient Tobacco Use Status: Never used Tobacco e-Cigarette/Vaping Use: Never Used Second Hand Smoke Exposure: No Use of substances other than those prescribed or required for medical reasons: No Have you been hit, kicked, punched, or otherwise hurt by someone within the past year? If so, by whom?: No Are you DNR?: No Advance Directives: No Advance Directives Information Provided: Yes (Sent with pre=op instructions) Advance Directives on File: No Recently lost weight without trying: No How much weight loss: 34pounds or more Nutrition Risks: No Nutritional Risk Patient : No FDLMP: 06/03 : No Poor oral hygiene: No service: No Current occupational status: employed ([employer] Cognitive needs: No Hearing needs: No Vision needs: No Meds Allergies Allergy/AdvReac Type Severity Reaction Status Date / Time No Known Allergies Allergy Verified 06/09/22 08:23 [No Known Allergies*] Active Medications: Current Medications Acetaminophen (Acetaminophen Oral Liquid 650 Mg/20.3 Ml Solution) 500 mg PO Q6H PRN PRN Reason: fever or pain Cyanocobalamin (Cyanocobalamin (Vitamin B-12) 500 Mcg Tablet) 500 mcg PO DAILY [facility] Cyclobenzaprine HCl (Cyclobenzaprine Hcl 5 Mg Tablet) 5 mg PO Q8H PRN PRN Reason: pain (scale score 7-10) Lisinopril (Lisinopril 10 Mg Tablet) 10 mg PO DAILY [facility]; Protocol Loratadine (Loratadine 10 Mg Tablet) 10 mg PO DAILY [facility] Non-Formulary Medication (Cholecalciferol (Vitamin D3)) 125 mcg PO DAILY [facility] Omeprazole (Omeprazole 20 Mg Capsule.Dr) 20 mg PO DAILY@0630 [facility] Ondansetron HCl (Ondansetron Odt 4 Mg Tab.Rapdis) 4 mg TRANSLINGU Q6H PRN PRN Reason: nausea and vomiting Sucralfate (Sucralfate Oral Suspension 1 Gm/10 Ml Oral.Susp) 1 gm PO BID [facility] Home Medications Medication Instructions Recorded Confirmed Last Taken Type etonogestrel 68 mg subdermal subdermal 04/21/22 06/06/22 Unknown History implant (Nexplanon) Exam Exam Date and Time: June 20, 2022 1026 Height,Weight and Vital Signs: Height 6 ft Weight 97.976 kg Pertinent Lab Results Pertinent Lab Results: Lab Results 06/20/22 06/20/22 06/20/22 Range/Units 11:11 11:11 11:11 WBC 8.4 (4.8-10.8) X10*3/uL RBC 3.96 L (4.20-5.50) X10*6/uL Hgb 12.0 (12.0-16.0) g/dl Hct 35.9 L (37.0-47.0) % MCV 90.7 (80.0-98.0) fL MCH 30.3 (27.0-33.0) pg MCHC 33.4 (31.0-35.0) g/dl RDW 12.6 (11.0-16.0) % Plt Count 349 (160-400) X10*3/uL MPV 9.2 L (9.4-12.3) fL Immature Gran % (Auto) 0.2 (0.0-0.4) % Neut % (Auto) 72.1 (45-73) % Lymph % (Auto) 21.4 (20-40) % [place] % (Auto) 5.1 (2-11) % Eos % (Auto) 0.4 (0-4) % Baso % (Auto) 0.8 (0-2) % Lymph # (Auto) 1.8 (1.2-4.9) X10*3/uL [place] # (Auto) 0.4 (0.1-1.2) X10*3/uL Eos # (Auto) 0.0 (0.0-0.4) X10*3/uL Baso # (Auto) 0.1 (0.0-0.2) X10*3/uL Abs Immat Gran (auto) 0.02 (0.00-0.03) X10*3/uL Absolute Neuts (auto) 6.1 (2.0-8.3) x10*3/uL Absolute Nucleated RBC 0.000 (0.0-0.012) X10*3/uL Nucleated RBC % (auto) 0.0 (0.0-0.2) /100WBC PT 13.7 H (10.0-13.1) SEC INR 1.2 H (0.9-1.1) APTT 34.9 (26.0-36.4) SEC Estimat Average Glucose mg/dL Hemoglobin A1c % % Ferritin (10-122) ng/mL 25-OH Vitamin D Total (>30) ng/mL TSH (0.32-4.0) uIU/mL COVID-19 ([facility]) (Negative) COVID-19 Clin Com Blood Type O Positive Antibody Screen NEGATIVE 06/20/22 06/20/22 06/20/22 Range/Units 11:11 11:11 11:24 WBC (4.8-10.8) X10*3/uL RBC (4.20-5.50) X10*6/uL Hgb (12.0-16.0) g/dl Hct (37.0-47.0) % MCV (80.0-98.0) fL MCH (27.0-33.0) pg MCHC (31.0-35.0) g/dl RDW (11.0-16.0) % Plt Count (160-400) X10*3/uL MPV (9.4-12.3) fL Immature Gran % (Auto) (0.0-0.4) % Neut % (Auto) (45-73) % Lymph % (Auto) (20-40) % [place] % (Auto) (2-11) % Eos % (Auto) (0-4) % Baso % (Auto) (0-2) % Lymph # (Auto) (1.2-4.9) X10*3/uL [place] # (Auto) (0.1-1.2) X10*3/uL Eos # (Auto) (0.0-0.4) X10*3/uL Baso # (Auto) (0.0-0.2) X10*3/uL Abs Immat Gran (auto) (0.00-0.03) X10*3/uL Absolute Neuts (auto) (2.0-8.3) x10*3/uL Absolute Nucleated RBC (0.0-0.012) X10*3/uL Nucleated RBC % (auto) (0.0-0.2) /100WBC PT (10.0-13.1) SEC INR (0.9-1.1) APTT (26.0-36.4) SEC Estimat Average Glucose 80 mg/dL Hemoglobin A1c % 4.4 % Ferritin 68 (10-122) ng/mL 25-OH Vitamin D Total 16.1 (>30) ng/mL TSH 0.43 (0.32-4.0) uIU/mL COVID-19 ([facility]) Negative (Negative) COVID-19 Clin Com See Note Blood Type Antibody Screen Narrative Narrative: EKG 06/2022 Vent. Rate : 059 BPM ? ? Atrial Rate : 059 BPM ?? P-R Int : 168 ms? QRS Dur : 094 ms ? ? QT Int : 412 ms ? ? ? P-R-T Axes : 009 016 010 degrees ?? QTc Int : 407 ms ? Sinus bradycardia with sinus arrhythmia Otherwise normal ECG When compared with ECG of 18-OCT-2021 11:23, No significant change was found Assessment and Plan Assessment Anesthesia Assessment: Chart Reviewed Documented by User: Mayra Tripp MD 06/21/22 07:41 PMFSH Past Medical History Medical History Allergic otitis media of both ears Anxiety Gestational hypertension Hypercholesterolemia Hypertension Insomnia Obesity (BMI 30-39.9) Vitamin D deficiency Surgical History Surgical History History of cholecystectomy Right ovarian cyst History of Problems with Anesthesia: No Social History Social History [facility] Are you a primary long term care phlebotomist to a significant other at home: No Do you presently have visiting nurse or other home services: No Alcohol intake: never Patient Tobacco Use Status: Never used Tobacco e-Cigarette/Vaping Use: Never Used Second Hand Smoke Exposure: No Use of substances other than those prescribed or required for medical reasons: No Have you been hit, kicked, punched, or otherwise hurt by someone within the past year? If so, by whom?: No Are you DNR?: No Advance Directives: No Advance Directives Information Provided: Yes (Sent with pre=op instructions) Advance Directives on File: No Recently lost weight without trying: No How much weight loss: 34pounds or more Nutrition Risks: No Nutritional Risk Patient : No FDLMP: 06/03 : No Poor oral hygiene: No service: No Current occupational status: employed ([employer] Cognitive needs: No Hearing needs: No Vision needs: No Meds Allergies Allergy/AdvReac Type Severity Reaction Status Date / Time No Known Allergies Allergy Verified 06/09/22 08:23 [No Known Allergies*] Home Medications Medication Instructions Recorded Confirmed Last Taken Type etonogestrel 68 mg subdermal subdermal 04/21/22 06/06/22 Unknown History implant (Nexplanon) Exam Airway Mallampati Class: II TM Dist: >3cm Neck ROM: Full Heart: RRR Lungs: CTA Assessment and Plan Assessment Anesthesia Assessment: Anesthesia Plan Discussed Final Anesthetic Review History of Problems with Anesthesia: No NPO: Yes ASA Class: II Final Preanesthetic Review: Meds/Allgs Chart Reviewed, Consent Obtained/Reviewed and Anes Risks/Benef Reviewed Patient Risk: Low Procedure Risk: Intermediate Anesthetic Plan Anesthetic Plan: GA Disposition: Standard PACU
[2022-06-20 11:19] LABS: MANUAL DIFF FLAG NO
[2022-06-20 11:57] LABS: COVID-19 Test Negative (Negative); IDNOW Serial# 6674DD1D
[2022-06-20 11:57] LABS: Basophils Absolute Auto 0.1 X10*3/uL (0.0-0.2); Basophils Percent Auto 0.8 % (0-2); Eosinophils Percent Auto 0.4 % (0-4); Hematocrit 35.9 % (37.0-47.0); Imm Gran Abs Auto 0.02 X10*3/uL (0.00-0.03); Imm Gran Pct Auto 0.2 % (0.0-0.4); Lymphocytes Absolute Auto 1.8 X10*3/uL (1.2-4.9); Lymphocytes Percent Auto 21.4 % (20-40); Mean Corpuscular HGB Conc 33.4 g/dl (31.0-35.0); Mean Corpuscular Hemoglobin 30.3 pg (27.0-33.0); Mean Corpuscular Volume 90.7 fL (80.0-98.0); Mean Platelet Volume 9.2 fL (9.4-12.3); Monocytes Absolute Auto 0.4 X10*3/uL (0.1-1.2); Monocytes Percent Auto 5.1 % (2-11); Neutrophils Absolute Auto 6.1 x10*3/uL (2.0-8.3); Neutrophils Percent Auto 72.1 % (45-73); Platelet Count 349 X10*3/uL (160-400); Red Blood Count 3.96 X10*6/uL (4.20-5.50); Red Cell Distribution Width 12.6 % (11.0-16.0); White Blood Count 8.4 X10*3/uL (4.8-10.8)
[2022-06-20 12:09] LABS: INTERNATIONAL NORM RATIO 1.2 (0.9-1.1); Prothrombin Time 13.7 SEC (10.0-13.1)
[2022-06-20 12:12] LABS: Partial Thromboplastin Time 34.9 SEC (26.0-36.4)
[2022-06-20 12:22] LABS: Estimated Average Glucose 80 mg/dL; Hemoglobin A1C 77.8037 umol/L; Hemoglobin A1c % 4.4 %
[2022-06-20 13:07] LABS: Ferritin 68 ng/mL (10-122); TSH reflex Free T4 0.43 uIU/mL (0.32-4.0); Vitamin D 25-OH Total 16.1 ng/mL (>30)
[2022-06-20 14:15] LABS: Alanine Aminotransferase 9 U/L (0-31); Alkaline Phosphatase 70 U/L (39-117); Anion Gap 12 (12-20); Aspartate Amino Transferase 11 U/L (5-31); Bilirubin Total 0.5 mg/dL (0.0-1.0); Blood Urea Nitrogen 7 mg/dL (9-16); C Reactive Protein 0.75 mg/dL (< or = 0.50); Calcium 9.1 mg/dL (8.4-10.2); Carbon Dioxide 26 mmol/L (22-29); Chloride 105 mmol/L (96-108); Cholesterol 158 mg/dL; Creatinine Clr Calc Pharmacy 161.3; Estimated Glomerular Filt Rate > 60; Glucose Random 74 mg/dL (60-115); HDL Cholesterol 35 mg/dL; Iron 27 mcg/dL (30-160); LDL Cholesterol Calculated 110 mg/dl; Percent Iron Saturation 11 % (15-50); Potassium 3.7 mmol/L (3.3-5.1); Sodium 139 mmol/L (135-145); Total Iron Binding Capacity 249 mcg/dL (228-428); Total Protein 7.1 g/dL (6.5-8.0); Triglycerides 69 mg/dL; Unsaturated Iron Binding 222 ug/dL
[2022-06-20 14:49] LABS: Vitamin B12 608 pg/mL (200-900)
[2022-06-21] VITALS (18 sets, daily range): BP systolic 98–133; BP diastolic 46–69; PULSE 50–103; RESP 14–21; TEMP 36.4–36.7; O2SAT 97–100
--- NOTE | 2022-06-21 06:36 | PC.NURSE ---
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 SHE STATED HE WENT TO THE PHARMACY TWICE AND IT WAS NEVER GIVEN TO HER. SHE ALSO STATED SHE HAS HAD NO SOLID FOOD FOR TWO WEEKS AND HAS BEEN ON A CLEAR LIQUID DIET ONLY. EMELY CONNECTED MD DE LA TORRE WITH THE CURRENT INFORMATION AND OK TO PROCEED.
[2022-06-21 06:50] LABS: UPreg QC Valid YES; Urine Pregnancy NEGATIVE (NEGATIVE)
[2022-06-21] MEDS: Scopolamine 1.5 MG PATCH.TD.3 TRANSDERMA (06:51)
[2022-06-21] MEDS: Lactated Ringers 1,000 ML 150 ML IVCONT (06:51)
--- NOTE | 2022-06-21 07:03 | P.OP_ITS ---
Operative Note Operative Note Date of Service: 06/21/22 Narrative: Preop diagnosis: [Morbid obesity, hypercholesterolemia and hypertension] Postop diagnosis: [Same] Procedure: [Laparoscopic sleeve aborted and converted to diagnostic laparoscopy] Surgeon: Issac Colon MD Assist: [Shi Larson PA-C] Anesthesia: [GET] Estimated blood loss: [3cc] Specimen: [none] Intraoperative findings: [Dense adhesions from the anterior gastric wall and fundus to the peritoneal surface were noted. The entire liver is also densely adhesed. ] Indications: [The patient is a 32-year-old woman with a lifelong struggle with obesity that is failed medical management. she entered our program at a weight of 260 lb with a BMI of 35.3?and has hypertension and hypercholesterolemia. She reported a prior abdominal operation of a lap choly and an abdominal plasty, both in [place]. After reviewing the options including medical management and gastric bypass, the patient wanted to proceed with laparoscopic sleeve gastrectomy, possible hiatal hernia repair, intraoperative endoscopy and possible ventral hernia repair. I reviewed the inherent risks of this procedure which include, but are not limited to: Bleeding that could require another operation or blood transfusion; the inherent risks of transfusion reaction infectious disease from blood transfusions; the risk of staple line leaks that could cause sepsis, multi-system organ failure and ; the risk of mesenteric or deep vein thrombosis of the lower extremities that could cause a fatal pulmonary embolism was reviewed; the risk of GERD that could require conversion to gastric bypass was discussed; the risk of recurrent hiatal hernia, especially in the setting of weight regain was reviewed. The risk of weight regain if maladaptive eating and sedentary behavior continue was discussed. The importance of proper diet and increased activity to augment surgical weight loss and the fact that no operation would result in weight loss of poor dietary decisions and sedentary behavior are resumed were discussed at length and apparently understood. For unclear reasons, the patient did not do the prescribed Miralax bowel prep. She otherwise denied interval change. Via a hospital chief engineer, I explained to the patient that she may have constipation and crampy abdominal pain and she had the option of rescheduling surgery, however she declined this. I believe it is reasonable to proceed and will adjust stool softeners and medications postoperatively to help mitigate this problem.] Procedure: [The patient was identified in the preoperative holding area and again an operating room 6. She voided her urinary bladder mobile electronics installer, sequential compression stockings were in place, she was induced in general endotracheal anesthesia administered with excellent effect an appropriate time-out was performed and a 40 Georgian visi G inserted per os approximately 20 cm by the nurse honing machine operator. The abdomen was then widely prepped and draped in the usual manner using ChloraPrep. Preemptive local of Marcaine, 0.5% with epi was used at all trocar insertion sites. I started in the left upper quadrant and after raising a skin wheal, injected additional local, made a stab incision and placed a Veress needle without incident. An appropriate drop test was then performed and a pneumoperitoneum of 15 mmHg obtained using carbon dioxide. Opening pressures were 5 mmHg. Next, the abdomen was accessed through an epigastric midline 5 mm Optiview trocar using a 0 degree 5 mm scope. Upon entering the abdomen, the Veress needle was clearly identified and there was no evidence of injury from the needle. The scope was switched to a 45 degree 5 mm scope and additional trocars inserted. Standard 12 mm epigastric and bilateral 5 mm subcostal ports were placed using preemptive local and direct laparoscopic vision without incident. As a diagnostic laparoscopy was performed, there was significant dense adhesions to the right upper quadrant and the liver was densely adherent to the anterior abdominal wall. There was some filmy adhesions of omentum and there were dense adhesions from the anterior gastric wall and the gastric fundus to the anterior abdominal wall. Given the unclear nature and density of these with an increased risk of bleeding & staple line complications, I elected to abort the procedure after taking pictures since the patient will need a workup and to be advised of the increased risk to the pa tient in options. I would also recommend an official consultation with Dr. Arroyo given this unexpected finding which may need to be addressed more is a revision surgery versus primary sleeve. The 12 mm epigastric trocar site was closed using 0 Polysorb suture and a suture Passer and the skin was closed with 4-0 Monocryl subcuticular sutures. The abdomen was then washed and dried and dressings applied. Patient tolerated the procedure well and was sent extubated the recovery in stable condition. All sponge instrument counts were correct x2. Plan for discharge later if tolerating diet. At the patient's request, I contacted her Jules at [phone] to explain the unexpected intraoperative findings. Unfortunately, he is not aware of any complications regarding the patient's gallbladder surgery since this was done in [place] and he was not with her at that time. He did understand and support the decision and his questions seemed to be satisfactorily answered. ]
--- NOTE | 2022-06-21 07:06 | MHC.SHP ---
Pre-Procedural Eval Section A Date of Service: 06/21/22 The patient is an INPATIENT: Yes The History & Physical has been completed within 30 days and I have reviewed it.: Yes Section B Chief Complaint: obesity s/p sleeve gastrectomy Allergies: Allergies Allergy/AdvReac Type Severity Reaction Status Date / Time No Known Allergies Allergy Verified 06/09/22 08:23 [No Known Allergies*] Plan I have reviewed the history and physical and performed a pertinent physical examination on my patient. No changes have occurred unless specified. Time Spent With Patient Time: Total time managing care of this patient today ____ minutes.
[2022-06-21] MEDS: ondansetron HCL 4 MG/2 ML VIAL IVPUSH (11:32)
[2022-06-21 11:39] LABS: PTHI 45 pg/mL (16-77)
[2022-06-23 06:08] LABS: Zinc 74 mcg/dL (60-130)
[2022-06-23 16:34] LABS: Vitamin B1 7 nmol/L (8-30)
[2022-06-25 00:28] LABS: Vitamin A 25 mcg/dL (38-98)
== END 2022-06-21 14:20 | disposition home or self-care (01) ==
LOC: HO.SSSA 12:29 → HO.SSS 14:37
PROVIDERS: Nurse Practitioner; Physician Assistant Surgical; PCP Internal Medicine; Visit Provider Surgery
PROC: (CPT 43845; principal; 2022-06-21 07:30)
DX: E66.9 Obesity, unspecified (principal); Z68.29 Body mass index [BMI] 29.0-29.9, adult; K66.0 Peritoneal adhesions (postprocedural) (postinfection); Z98.84 Bariatric surgery status; I10 Essential (primary) hypertension; E78.00 Pure hypercholesterolemia, unspecified; F41.1 Generalized anxiety disorder; E55.9 Vitamin D deficiency, unspecified; Z79.899 Other long term (current) drug therapy; Z20.822 Contact with and (suspected) exposure to COVID-19
CPT/HCPCS: 49320; 36415; 80053; 80061; 81025; 82306; 82607; 82728; 83036; 83540; 83970; 84425; 84443; 84590; 84630; 85025; 85610; 85730; 86140; 86850; 86900; 86901; 87635; 93005; C9088; J0131; J0690; J1170; J2250; J2370; J2405; J2550; J2795; J3010

== ENCOUNTER → 2022-06-26 14:49 | Outpatient (BNVA) | payer OTHER, SELFPAY | PROVIDERS: PCP Internal Medicine; Visit Provider Surgery | DX: E66.9 Obesity, unspecified (principal); L90.5 Scar conditions and fibrosis of skin; I10 Essential (primary) hypertension; Z68.29 Body mass index [BMI] 29.0-29.9, adult | CPT/HCPCS: 99212 ==

== ENCOUNTER 2022-06-29 08:12 | Day surgery (SDC) | payer OTHER, SELFPAY ==
--- NOTE | 2022-06-28 10:35 | HO.ANESPROP2 ---
Documented by User: Karla Conte NP 06/28/22 10:36 HPI - Anesthesia Eval Consult details Narrative: 32yo F for Upper Endoscopy 06/22/2022 - aborted gastric sleeve d/t adhesions PMFSH Active Problems Active Problems: All Active Problems (Updated 06/26/22 @ 15:15 by Issac Colon MD) Scar tissue (Acute) Depressed mood (Acute) Vertigo (Acute) Upper respiratory tract infection (Acute) Adult general medical exam (Acute) Choking sensation (Acute) Encounter for monitoring of etonogestrel implant (Acute) Generalized anxiety disorder (Acute) Vitamin D deficiency (Acute) Hypertension (Acute) Hypercholesterolemia (Acute) Obesity (BMI 30-39.9) (Acute) Past Medical History Medical History Allergic otitis media of both ears Anxiety Gestational hypertension Hypercholesterolemia Hypertension Insomnia Obesity (BMI 30-39.9) Vitamin D deficiency Surgical History Surgical History History of cholecystectomy Right ovarian cyst History of Problems with Anesthesia: No Social History [facility] Are you a primary client care representative to a significant other at home: No Do you presently have visiting nurse or other home services: No Alcohol intake: never Patient Tobacco Use Status: Never used Tobacco e-Cigarette/Vaping Use: Never Used Second Hand Smoke Exposure: No Are you DNR?: No Advance Directives: No Advance Directives Information Provided: Yes Nutrition Risks: No Nutritional Risk FDLMP: currently service: No Current occupational status: employed ([employer] Cognitive needs: No Hearing needs: No Vision needs: No Meds Allergies Allergy/AdvReac Type Severity Reaction Status Date / Time No Known Allergies Allergy Verified 06/29/22 09:37 [No Known Allergies*] Home Medications Medication Instructions Recorded Confirmed Last Taken Type etonogestrel 68 mg subdermal subdermal 04/21/22 06/26/22 Unknown History implant (Nexplanon) Exam Exam Date and Time: June 28, 2022 1035 Height,Weight and Vital Signs: Height 6 ft Weight 97.976 kg Pertinent Lab Results Pertinent Lab Results: Lab Results 06/20/22 06/20/22 06/20/22 Range/Units 11:11 11:11 11:11 WBC 8.4 (4.8-10.8) X10*3/uL RBC 3.96 L (4.20-5.50) X10*6/uL Hgb 12.0 (12.0-16.0) g/dl Hct 35.9 L (37.0-47.0) % MCV 90.7 (80.0-98.0) fL MCH 30.3 (27.0-33.0) pg MCHC 33.4 (31.0-35.0) g/dl RDW 12.6 (11.0-16.0) % Plt Count 349 (160-400) X10*3/uL MPV 9.2 L (9.4-12.3) fL Immature Gran % (Auto) 0.2 (0.0-0.4) % Neut % (Auto) 72.1 (45-73) % Lymph % (Auto) 21.4 (20-40) % [place] % (Auto) 5.1 (2-11) % Eos % (Auto) 0.4 (0-4) % Baso % (Auto) 0.8 (0-2) % Lymph # (Auto) 1.8 (1.2-4.9) X10*3/uL [place] # (Auto) 0.4 (0.1-1.2) X10*3/uL Eos # (Auto) 0.0 (0.0-0.4) X10*3/uL Baso # (Auto) 0.1 (0.0-0.2) X10*3/uL Abs Immat Gran (auto) 0.02 (0.00-0.03) X10*3/uL Absolute Neuts (auto) 6.1 (2.0-8.3) x10*3/uL Absolute Nucleated RBC 0.000 (0.0-0.012) X10*3/uL Nucleated RBC % (auto) 0.0 (0.0-0.2) /100WBC PT 13.7 H (10.0-13.1) SEC INR 1.2 H (0.9-1.1) APTT 34.9 (26.0-36.4) SEC Estimat Average Glucose mg/dL Hemoglobin A1c % % Ferritin (10-122) ng/mL 25-OH Vitamin D Total (>30) ng/mL TSH (0.32-4.0) uIU/mL COVID-19 ([facility]) (Negative) COVID-19 Clin Com Blood Type O Positive Antibody Screen NEGATIVE 06/20/22 06/20/22 06/20/22 Range/Units 11:11 11:11 11:24 WBC (4.8-10.8) X10*3/uL RBC (4.20-5.50) X10*6/uL Hgb (12.0-16.0) g/dl Hct (37.0-47.0) % MCV (80.0-98.0) fL MCH (27.0-33.0) pg MCHC (31.0-35.0) g/dl RDW (11.0-16.0) % Plt Count (160-400) X10*3/uL MPV (9.4-12.3) fL Immature Gran % (Auto) (0.0-0.4) % Neut % (Auto) (45-73) % Lymph % (Auto) (20-40) % [place] % (Auto) (2-11) % Eos % (Auto) (0-4) % Baso % (Auto) (0-2) % Lymph # (Auto) (1.2-4.9) X10*3/uL [place] # (Auto) (0.1-1.2) X10*3/uL Eos # (Auto) (0.0-0.4) X10*3/uL Baso # (Auto) (0.0-0.2) X10*3/uL Abs Immat Gran (auto) (0.00-0.03) X10*3/uL Absolute Neuts (auto) (2.0-8.3) x10*3/uL Absolute Nucleated RBC (0.0-0.012) X10*3/uL Nucleated RBC % (auto) (0.0-0.2) /100WBC PT (10.0-13.1) SEC INR (0.9-1.1) APTT (26.0-36.4) SEC Estimat Average Glucose 80 mg/dL Hemoglobin A1c % 4.4 % Ferritin 68 (10-122) ng/mL 25-OH Vitamin D Total 16.1 (>30) ng/mL TSH 0.43 (0.32-4.0) uIU/mL COVID-19 ([facility]) Negative (Negative) COVID-19 Clin Com See Note Blood Type Antibody Screen Narrative Narrative: EKG 06/2022 Vent. Rate : 059 BPM ? ? Atrial Rate : 059 BPM ?? P-R Int : 168 ms? QRS Dur : 094 ms ? ? QT Int : 412 ms ? ? ? P-R-T Axes : 009 016 010 degrees ?? QTc Int : 407 ms ? Sinus bradycardia with sinus arrhythmia Otherwise normal ECG When compared with ECG of 18-OCT-2021 11:23, No significant change was found Assessment and Plan Assessment Anesthesia Assessment: Chart Reviewed Final Anesthetic Review History of Problems with Anesthesia: No Documented by User: Hubert Mcintyre MD 06/29/22 10:32 [facility] Past Medical History Medical History Allergic otitis media of both ears Anxiety Gestational hypertension Hypercholesterolemia Hypertension Insomnia Obesity (BMI 30-39.9) Vitamin D deficiency Patient : No Family History Family history of problems with anesthesia: No Surgical History Surgical History History of cholecystectomy Right ovarian cyst History of Problems with Anesthesia: No Social History Social History Housing: Condominium Are you a primary client care representative to a significant other at home: No Do you presently have visiting nurse or other home services: No Alcohol intake: never Patient Tobacco Use Status: Never used Tobacco e-Cigarette/Vaping Use: Never Used Second Hand Smoke Exposure: No Are you DNR?: No Advance Directives: No Advance Directives Information Provided: Yes Nutrition Risks: No Nutritional Risk FDLMP: currently service: No Current occupational status: employed ([employer] Cognitive needs: No Hearing needs: No Vision needs: No Meds Allergies Allergy/AdvReac Type Severity Reaction Status Date / Time No Known Allergies Allergy Verified 06/29/22 09:37 [No Known Allergies*] Home Medications Medication Instructions Recorded Confirmed Last Taken Type etonogestrel 68 mg subdermal subdermal 04/21/22 06/26/22 Unknown History implant (Nexplanon) Exam Airway Mallampati Class: I TM Dist: >3cm Neck ROM: Full Loose/Missing/Broken Teeth: No Heart: ok Lungs: ok Assessment and Plan Final Anesthetic Review Family History of Problems with Anesthesia: No History of Problems with Anesthesia: No NPO: Yes ASA Class: II Final Preanesthetic Review: No Changes in Pt Med Stat, Meds/Allgs Chart Reviewed, Consent Obtained/Reviewed and Anes Risks/Benef Reviewed Patient Risk: Low Procedure Risk: Intermediate Anesthetic Plan Anesthetic Plan: GA and Agree w/ Assess. and Plan Disposition: Standard PACU
[2022-06-29 08:54] VITALS: BMI 28.8
[2022-06-29 09:13] LABS: UPreg QC Valid YES; Urine Pregnancy NEGATIVE (NEGATIVE)
[2022-06-29 09:22] VITALS: BP 120/66; PULSE 91; RESP 18; TEMP 36.2; O2SAT 98
[2022-06-29] MEDS: Lactated Ringers 1,000 ML 100 ML IVCONT (09:27)
--- NOTE | 2022-06-29 09:40 | MHC.SHP ---
Pre-Procedural Eval Section A Date of Service: 06/29/22 Section B Chief Complaint: Gastric wall adhesions Details of Present Illness: This is a 32-year-old female who was referred by bariatric surgery after she was found to have significant gastric wall adhesions on laparoscopy, which was initially intended for sleeve gastrectomy. She is here for a diagnostic endoscopy. Patient herself does not have any gastrointestinal complaints include abdominal pain, nausea, vomiting, difficulty following, changes in bowel habits Relevant Social History: None Present Medications: see Short Stay Collaborative assessment Medical History: Significant History (Obesity, HTN, DOMINIQUE, vertigo ) History of Previous Operations: Relevant previous surgery/procedure and date(s) (diagnostic laparoscopy ) Allergies: Allergies Allergy/AdvReac Type Severity Reaction Status Date / Time No Known Allergies Allergy Verified 06/29/22 09:37 [No Known Allergies*] Review of Systems Review of Systems Comment: Ten point review of system negative except as above Exam Exam Comment: Gen appear: No acute distress, well nourished HEENT: no icterus Chest: No overt resp distress Abd: soft, nontender, nondistended Psych: Stable affect, answering questions appropriately Neuro: A/Ox3 noted to move all extremities spontaneously Ext: no peripheral edema Plan Diagnosis/Plan: Unchanged I have reviewed the history and physical and performed a pertinent physical examination on my patient. No changes have occurred unless specified. Time Spent With Patient Time: Total time managing care of this patient today ____ minutes.
--- NOTE | 2022-06-29 10:20 | P.OP_ITS ---
Operative Note Operative Note Date of Service: 06/29/22 Narrative: Procedure: Esophagogastroduodenoscopy Endoscopist: Veronica Gavin MD Indication: Gastric adhesions Anesthesia Provider: Dr Hubert Mcintyre Anesthesia Type: MAC ?? EGD Procedure:?? The procedure, indications, preparation and potential complications were revie wed with the patient, who indicated understanding and gave written informed consent to proceed. A physical exam was performed. The endoscope was introduced through the mouth, and advanced to the second part of duodenum. The mucosa was carefully examined on slow withdrawal of the endoscope. The patient tolerated the procedure well. There were no immediate complications.? ? EGD Findings:? * Esophagus:? Normal mucosa noted in the entire esophagus. The Z line was at 38. * Stomach:? A few linear erosions with scant heme noted in the antrum. Random gastric biopsies were taken to rule out H Pylori infection. * Duodenum:? Normal mucosa was noted in the whole of the examined duodenum. ? EGD Impressions:? * Normal esophagus * Mild antral gastritis (biopsy) * Normal duodenum ?? Recommendations:?? * Follow biopsy results. Our office will call or send a letter with results within 7-10 days. * Continue PPI therapy. * If H pylori +, patient will be prescribed eradication therapy followed by test of cure. * Avoid NSAIDs. * Follow up with Dr Colon as scheduled. Above has been reviewed with the patient. Relevant educational hand outs were provided at discharge. ?
[2022-06-29 10:59] VITALS: BP 118/69; PULSE 57; RESP 16; TEMP 36.1; O2SAT 100
[2022-06-29 11:14] VITALS: BP 113/68; PULSE 57; RESP 16; TEMP 37; O2SAT 100
== END 2022-06-29 11:44 | disposition home or self-care (01) ==
PROVIDERS: Nurse Practitioner; PCP Internal Medicine; Visit Provider Internal Medicine
PROC: 0DJ08ZZ Inspection of Upper Intestinal Tract, Via Natural or Artificial Opening Endoscopic (ICD-10-PCS; CPT 43235; principal; 2022-06-29 10:00)
DX: K29.50 Unspecified chronic gastritis without bleeding (principal); I10 Essential (primary) hypertension; E78.00 Pure hypercholesterolemia, unspecified; R42 Dizziness and giddiness; E66.9 Obesity, unspecified; F41.1 Generalized anxiety disorder; Z79.899 Other long term (current) drug therapy; Z90.49 Acquired absence of other specified parts of digestive tract; Z98.890 Other specified postprocedural states
CPT/HCPCS: 43239; 81025; 88305; 88342; J3010

== ENCOUNTER → 2022-07-04 08:15 | Outpatient (BNVA) | payer OTHER, SELFPAY | PROVIDERS: PCP Internal Medicine; Referring Provider Internal Medicine; Visit Provider Surgery | DX: Z13.89 Encounter for screening for other disorder (principal) ==

== ENCOUNTER → 2022-07-14 09:59 | Outpatient (BNVA) | payer OTHER, SELFPAY | PROVIDERS: PCP Internal Medicine; Visit Provider Surgery | DX: E66.9 Obesity, unspecified (principal); Z68.30 Body mass index [BMI] 30.0-30.9, adult; A04.8 Other specified bacterial intestinal infections; K66.0 Peritoneal adhesions (postprocedural) (postinfection); L90.5 Scar conditions and fibrosis of skin; I10 Essential (primary) hypertension; E78.00 Pure hypercholesterolemia, unspecified; E55.9 Vitamin D deficiency, unspecified; R45.89 Other symptoms and signs involving emotional state; F41.1 Generalized anxiety disorder; Z90.49 Acquired absence of other specified parts of digestive tract | CPT/HCPCS: 99212 ==

== ENCOUNTER → 2022-07-26 10:08 | Outpatient (BNVA) | payer OTHER, SELFPAY | PROVIDERS: PCP Internal Medicine; Visit Provider Advanced Practice Midwife | DX: Z30.46 Encounter for surveillance of implantable subdermal contraceptive (principal) | CPT/HCPCS: 11983; 81025; 99212; J7307 ==

== ENCOUNTER → 2022-08-15 13:35 | Outpatient (BNVA) | payer OTHER, SELFPAY | PROVIDERS: PCP Internal Medicine; Referring Provider Internal Medicine; Visit Provider Surgery | DX: A04.8 Other specified bacterial intestinal infections (principal); L90.5 Scar conditions and fibrosis of skin; E66.9 Obesity, unspecified; Z68.31 Body mass index [BMI] 31.0-31.9, adult; E78.00 Pure hypercholesterolemia, unspecified; I10 Essential (primary) hypertension; E55.9 Vitamin D deficiency, unspecified; F41.1 Generalized anxiety disorder | CPT/HCPCS: 99212 ==

== ENCOUNTER 2022-08-24 06:52 | Day surgery (SDC) | payer OTHER, SELFPAY ==
--- NOTE | 2022-08-23 10:55 | HO.ANESPROP2 ---
Documented by User: Karla Conte NP 08/23/22 10:56 HPI - Anesthesia Eval Consult details Narrative: 32yo F for Upper Endoscopy s/p EGD 06/2022 with TIVA aborted gastric sleeve 06/2022 d/t adhesions PMFSH Active Problems Active Problems: All Active Problems (Updated 07/26/22 @ 11:08 by Marie Lozano CNM) Encounter for removal and reinsertion of Nexplanon (Acute) Helicobacter pylori (H. pylori) (Acute) Scar tissue (Acute) Depressed mood (Acute) Vertigo (Acute) Upper respiratory tract infection (Acute) Adult general medical exam (Acute) Choking sensation (Acute) Encounter for monitoring of etonogestrel implant (Acute) Generalized anxiety disorder (Acute) Vitamin D deficiency (Acute) Hypertension (Acute) Hypercholesterolemia (Acute) Obesity (BMI 30-39.9) (Acute) Past Medical History Medical History Allergic otitis media of both ears Anxiety Gestational hypertension Hypercholesterolemia Hypertension Insomnia Obesity (BMI 30-39.9) Vitamin D deficiency Family History Family history of problems with anesthesia: No Surgical History Surgical History History of cholecystectomy Right ovarian cyst History of Problems with Anesthesia: No Social History [facility] History [facility] Are you a primary health care attorney to a significant other at home: No Do you presently have visiting nurse or other home services: No Alcohol intake: never Patient Tobacco Use Status: Never used Tobacco e-Cigarette/Vaping Use: Never Used Second Hand Smoke Exposure: No Advance Directives: No Advance Directives Information Provided: Yes service: No Current occupational status: employed ([employer] Cognitive needs: No Hearing needs: No Vision needs: No Meds Allergies Allergy/AdvReac Type Severity Reaction Status Date / Time No Known Allergies Allergy Verified 08/15/22 13:41 [No Known Allergies*] Home Medications Medication Instructions Recorded Confirmed Last Taken Type etonogestrel 68 mg subdermal subdermal 04/21/22 07/26/22 Unknown History implant (Nexplanon) Exam Exam Date and Time: August 23, 2022 1055 Pertinent Lab Results Pertinent Lab Results: Lab Results 06/20/22 06/20/22 06/20/22 Range/Units 11:11 11:11 11:11 WBC 8.4 (4.8-10.8) X10*3/uL RBC 3.96 L (4.20-5.50) X10*6/uL Hgb 12.0 (12.0-16.0) g/dl Hct 35.9 L (37.0-47.0) % MCV 90.7 (80.0-98.0) fL MCH 30.3 (27.0-33.0) pg MCHC 33.4 (31.0-35.0) g/dl RDW 12.6 (11.0-16.0) % Plt Count 349 (160-400) X10*3/uL MPV 9.2 L (9.4-12.3) fL Immature Gran % (Auto) 0.2 (0.0-0.4) % Neut % (Auto) 72.1 (45-73) % Lymph % (Auto) 21.4 (20-40) % [place] % (Auto) 5.1 (2-11) % Eos % (Auto) 0.4 (0-4) % Baso % (Auto) 0.8 (0-2) % Lymph # (Auto) 1.8 (1.2-4.9) X10*3/uL [place] # (Auto) 0.4 (0.1-1.2) X10*3/uL Eos # (Auto) 0.0 (0.0-0.4) X10*3/uL Baso # (Auto) 0.1 (0.0-0.2) X10*3/uL Abs Immat Gran (auto) 0.02 (0.00-0.03) X10*3/uL Absolute Neuts (auto) 6.1 (2.0-8.3) x10*3/uL Absolute Nucleated RBC 0.000 (0.0-0.012) X10*3/uL Nucleated RBC % (auto) 0.0 (0.0-0.2) /100WBC PT 13.7 H (10.0-13.1) SEC INR 1.2 H (0.9-1.1) APTT 34.9 (26.0-36.4) SEC Estimat Average Glucose mg/dL Hemoglobin A1c % % Ferritin (10-122) ng/mL 25-OH Vitamin D Total (>30) ng/mL TSH (0.32-4.0) uIU/mL COVID-19 ([facility]) (Negative) COVID-19 Clin Com Blood Type O Positive Antibody Screen NEGATIVE 06/20/22 06/20/22 06/20/22 Range/Units 11:11 11:11 11:24 WBC (4.8-10.8) X10*3/uL RBC (4.20-5.50) X10*6/uL Hgb (12.0-16.0) g/dl Hct (37.0-47.0) % MCV (80.0-98.0) fL MCH (27.0-33.0) pg MCHC (31.0-35.0) g/dl RDW (11.0-16.0) % Plt Count (160-400) X10*3/uL MPV (9.4-12.3) fL Immature Gran % (Auto) (0.0-0.4) % Neut % (Auto) (45-73) % Lymph % (Auto) (20-40) % [place] % (Auto) (2-11) % Eos % (Auto) (0-4) % Baso % (Auto) (0-2) % Lymph # (Auto) (1.2-4.9) X10*3/uL [place] # (Auto) (0.1-1.2) X10*3/uL Eos # (Auto) (0.0-0.4) X10*3/uL Baso # (Auto) (0.0-0.2) X10*3/uL Abs Immat Gran (auto) (0.00-0.03) X10*3/uL Absolute Neuts (auto) (2.0-8.3) x10*3/uL Absolute Nucleated RBC (0.0-0.012) X10*3/uL Nucleated RBC % (auto) (0.0-0.2) /100WBC PT (10.0-13.1) SEC INR (0.9-1.1) APTT (26.0-36.4) SEC Estimat Average Glucose 80 mg/dL Hemoglobin A1c % 4.4 % Ferritin 68 (10-122) ng/mL 25-OH Vitamin D Total 16.1 (>30) ng/mL TSH 0.43 (0.32-4.0) uIU/mL COVID-19 ([facility]) Negative (Negative) COVID-19 Clin Com See Note Blood Type Antibody Screen Narrative Narrative: EKG 06/2022 Vent. Rate : 059 BPM ? ? Atrial Rate : 059 BPM ?? P-R Int : 168 ms? QRS Dur : 094 ms ? ? QT Int : 412 ms ? ? ? P-R-T Axes : 009 016 010 degrees ?? QTc Int : 407 ms ? Sinus bradycardia with sinus arrhythmia Otherwise normal ECG When compared with ECG of 18-OCT-2021 11:23, No significant change was found Assessment and Plan Assessment Anesthesia Assessment: Chart Reviewed Final Anesthetic Review Family History of Problems with Anesthesia: No History of Problems with Anesthesia: No Documented by User: Malia Nowak MD 08/24/22 08:13 HPI - Anesthesia Eval Consult details Narrative: 32yo F for Upper Endoscopy for reevaluation of H Pylori s/p EGD 06/2022 with TIVA aborted gastric sleeve 06/2022 d/t adhesions PMFSH Past Medical History Medical History Allergic otitis media of both ears Anxiety Gestational hypertension Hypercholesterolemia Hypertension Insomnia Obesity (BMI 30-39.9) Vitamin D deficiency Patient : No (urine HCG negative) Surgical History Surgical History History of cholecystectomy Right ovarian cyst Social History Social History Housing: Condominium Are you a primary health care attorney to a significant other at home: No Do you presently have visiting nurse or other home services: No Alcohol intake: never Patient Tobacco Use Status: Never used Tobacco e-Cigarette/Vaping Use: Never Used Second Hand Smoke Exposure: No Advance Directives: No Advance Directives Information Provided: Yes service: No Current occupational status: employed ([employer] Cognitive needs: No Hearing needs: No Vision needs: No Meds Allergies Allergy/AdvReac Type Severity Reaction Status Date / Time No Known Allergies Allergy Verified 08/15/22 13:41 [No Known Allergies*] Home Medications Medication Instructions Recorded Confirmed Last Taken Type etonogestrel 68 mg subdermal subdermal 04/21/22 07/26/22 Unknown History implant (Nexplanon) Exam Airway Mallampati Class: II TM Dist: >3cm Neck ROM: Full Loose/Missing/Broken Teeth: No Heart: rr Lungs: cta Assessment and Plan Assessment Anesthesia Assessment: Anesthesia Plan Discussed Final Anesthetic Review NPO: Yes ASA Class: II Final Preanesthetic Review: No Changes in Pt Med Stat, Meds/Allgs Chart Reviewed, Consent Obtained/Reviewed and Anes Risks/Benef Reviewed Patient Risk: Low Procedure Risk: Low Anesthetic Plan Anesthetic Plan: MAC: Disposition: Standard PACU
[2022-08-24 06:54] VITALS: BMI 28.3
[2022-08-24 07:01] LABS: UPreg QC Valid YES; Urine Pregnancy NEGATIVE (NEGATIVE)
[2022-08-24 07:09] VITALS: BP 125/60; PULSE 83; RESP 15; TEMP 35.8; O2SAT 98
[2022-08-24] MEDS: Lactated Ringers 1,000 ML 100 ML IVCONT (07:11)
--- NOTE | 2022-08-24 07:18 | MHC.SHP ---
Pre-Procedural Eval Section A Date of Service: 08/24/22 The patient is an INPATIENT: No The History & Physical has been completed within 30 days and I have reviewed it.: Yes Section B Chief Complaint: Scar conditions and fibrosis of skin Allergies: Allergies Allergy/AdvReac Type Severity Reaction Status Date / Time No Known Allergies Allergy Verified 08/15/22 13:41 [No Known Allergies*] Plan I have reviewed the history and physical and performed a pertinent physical examination on my patient. No changes have occurred unless specified. Time Spent With Patient Time: Total time managing care of this patient today ____ minutes.
--- NOTE | 2022-08-24 07:18 | PM.PROC ---
Brief Operative Note Date of procedure: 08/24/22 Procedure: Preop diagnosis: [Perigastric adhesions, desire for sleeve gastrectomy, H pylori] Postop diagnosis: [Same, aphthous ulcers in the antrum, path] Procedure: [EGD with biopsies] Surgeon: Issac Colon MD Assist: [] Anesthesia: [MAC] Estimated blood loss: [3cc] Specimen: [Body of stomach, antrum] Intraoperative findings: [GE junction Z-line is at 36 cm and crisp with no hiatal hernia; grossly, the antrum and body of the stomach appeared normal with the exception of 2 small aphthous ulcers near the pylorus; question duodenitis involving the bulb and 2nd portion of the duodenum] Indications: [The patient is a 32-year-old woman with a lifelong struggle with obesity refractory to medical management. She is interested in sleeve gastrectomy and after demonstrating healthy lifestyle changes, preoperative workup was negative for H pylori on breath test. She underwent an attempted laparoscopic sleeve gastrectomy but had extensive perigastric adhesions from her stomach to her anterior abdominal wall as well as her liver. Given the degree of adhesions, the procedure was aborted to determine an etiology for the extensive adhesions. On EGD by Dr. Gavin postoperatively, the patient was noted to have rare H pylori and given the unusual nature of the gastric/perigastric and hepatic adhesions, a repeat EGD to assess for resolution of the H pylori infection was recommended. The inherent risks of bleeding, aspiration, pneumonia, perforation or injury that could require another procedure, delayed recognition of these complications, possibility of no change in her treatment were all reviewed. 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 Patient seemed understand her options and wanted to proceed.] Procedure: [The patient was identified in the preoperative holding area and again in OR room 3. An appropriate time-out was performed while she was awake and MAC administered with excellent effect. Next, the Olympus 190 was placed through the bite block and advanced per os under direct vision through the cricopharyngeal portion of the esophagus into the stomach. Clear secretions were encountered and aspirated. The scope was then advanced around the 2nd portion of the duodenum which appears grossly free of inflammation, but a textural anomaly was identified and 2 biopsies of the duodenum, 2nd portion and 2 biopsies of the duodenal bulb were obtained. After ensuring good hemostasis, the scope was withdrawn into the stomach in the anterior, posterior, lesser curve and fundus all examined. In the antrum near the pylorus, 2 small aphthous ulcers measuring approximately 1 mm were identified and biopsied. After ensuring hemostasis biopsies of the body and antrum were performed. The scope was returned to neutral and used to confirm hemostasis which demonstrated by adherent clot. The scope was withdrawn to the GE junction which was at 36 cm in free of hiatal hernia, Chavez's; Z-line is Efraín been intact with no features of GERD. The remaining esophagus appeared normal so the scope was withdrawn from the patient. Patient tolerated the procedure well. She was sent to the recovery area in stable condition. She will see me in 1 week to discuss pathology report and possible sleeve gastrectomy.]
[2022-08-24 08:06] VITALS: BP 124/64; PULSE 64; RESP 20; TEMP 36.2; O2SAT 100
[2022-08-24 08:21] VITALS: BP 128/78; PULSE 60; RESP 18; TEMP 36.3; O2SAT 98
== END 2022-08-24 09:08 | disposition home or self-care (01) ==
LOC: HO.SSS 06:52
PROVIDERS: Anesthesiology; PCP Internal Medicine; Visit Provider Surgery
PROC: 0DJ08ZZ Inspection of Upper Intestinal Tract, Via Natural or Artificial Opening Endoscopic (ICD-10-PCS; CPT 43235; principal; 2022-08-24 07:30)
DX: K66.0 Peritoneal adhesions (postprocedural) (postinfection) (principal); Z98.890 Other specified postprocedural states; K29.50 Unspecified chronic gastritis without bleeding; Z86.19 Personal history of other infectious and parasitic diseases; K31.89 Other diseases of stomach and duodenum; Z90.49 Acquired absence of other specified parts of digestive tract; I10 Essential (primary) hypertension; E78.00 Pure hypercholesterolemia, unspecified; E55.9 Vitamin D deficiency, unspecified; G47.00 Insomnia, unspecified; E66.9 Obesity, unspecified; Z68.31 Body mass index [BMI] 31.0-31.9, adult; F41.1 Generalized anxiety disorder
CPT/HCPCS: 43239; 81025; 88305; 88342; J3010

== ENCOUNTER → 2022-08-30 15:29 | Outpatient (BNVA) | payer OTHER, SELFPAY | PROVIDERS: PCP Internal Medicine; Visit Provider Physician Assistant Surgical | DX: E66.3 Overweight (principal); A04.8 Other specified bacterial intestinal infections; Z68.28 Body mass index [BMI] 28.0-28.9, adult | CPT/HCPCS: 99212 ==

== ENCOUNTER → 2022-09-12 11:30 | Outpatient (BNVA) | payer OTHER, SELFPAY | PROVIDERS: PCP Internal Medicine; Visit Provider Physician Assistant Surgical ==

== ENCOUNTER → 2022-09-19 14:40 | Outpatient (BNVA) | payer OTHER, SELFPAY | PROVIDERS: PCP Internal Medicine; Visit Provider Surgery | DX: L90.5 Scar conditions and fibrosis of skin (principal); A04.8 Other specified bacterial intestinal infections; I10 Essential (primary) hypertension; E78.00 Pure hypercholesterolemia, unspecified; F41.1 Generalized anxiety disorder; E55.9 Vitamin D deficiency, unspecified; Z68.28 Body mass index [BMI] 28.0-28.9, adult | CPT/HCPCS: 99212 ==

== ENCOUNTER 2022-09-20 06:10 | Inpatient (IN) | payer OTHER, SELFPAY ==
[2022-09-13 13:03] VITALS: BMI 28.3
--- NOTE | 2022-09-19 08:17 | HO.ANESPROP2 ---
Documented by User: Karla Conte NP 09/19/22 08:18 HPI - Anesthesia Eval Consult details Narrative: 32yo F for Gastrectomy Sleeve, egd, poss diaphragmatic hernia,poss ventral hernia,poss open s/p EGD 08/2022 with MAC previously aborted gastric sleeve d/t adhesions PMFSH Active Problems Active Problems: All Active Problems (Updated 08/30/22 @ 16:00 by ARMINDA Rojas) Depressed mood (Acute) Vertigo (Acute) Upper respiratory tract infection (Acute) Adult general medical exam (Acute) Choking sensation (Acute) Encounter for monitoring of etonogestrel implant (Acute) Generalized anxiety disorder (Acute) Scar tissue (Acute) Helicobacter pylori (H. pylori) (Acute) Encounter for removal and reinsertion of Nexplanon (Acute) Overweight (BMI 25.0-29.9) (Acute) Vitamin D deficiency (Acute) Hypertension (Acute) Hypercholesterolemia (Acute) Obesity (BMI 30-39.9) (Acute) Past Medical History Medical History Allergic otitis media of both ears Anxiety Gestational hypertension Hypercholesterolemia Hypertension Insomnia Obesity (BMI 30-39.9) Vitamin D deficiency Family History Family history of problems with anesthesia: No Surgical History Surgical History (Updated 09/20/22 @ 09:56 by Nelida Murray MD) History of cholecystectomy History of esophagogastroduodenoscopy (EGD) Hx of laparoscopy Right ovarian cyst History of Problems with Anesthesia: No Social History Social History Housing: Condominium Are you a primary home health care physician to a significant other at home: Yes (children) Do you presently have visiting nurse or other home services: No Alcohol intake: never Patient Tobacco Use Status: Never used Tobacco e-Cigarette/Vaping Use: Never Used Second Hand Smoke Exposure: No Use of substances other than those prescribed or required for medical reasons: No Have you been hit, kicked, punched, or otherwise hurt by someone within the past year? If so, by whom?: No Are you DNR?: No Advance Directives: No Advance Directives Information Provided: Yes Advance Directives on File: No Recently lost weight without trying: No Nutrition Risks: No Nutritional Risk Patient : No FDLMP: 09/04/2022 : No Poor oral hygiene: No service: No Current occupational status: employed ([employer] Cognitive needs: No Hearing needs: No Vision needs: No Meds Allergies Allergy/AdvReac Type Severity Reaction Status Date / Time No Known Allergies Allergy Verified 09/19/22 14:45 [No Known Allergies*] Home Medications Medication Instructions Recorded Confirmed Last Taken Type etonogestrel 68 mg subdermal subdermal 04/21/22 09/19/22 09/19/22 History implant (Nexplanon) Exam Exam Date and Time: September 19, 2022 0817 Height,Weight and Vital Signs: Height 6 ft Weight 94.801 kg Pertinent Lab Results Pertinent Lab Results: Lab Results 06/20/22 06/20/22 06/20/22 Range/Units 11:11 11:11 11:11 WBC 8.4 (4.8-10.8) X10*3/uL RBC 3.96 L (4.20-5.50) X10*6/uL Hgb 12.0 (12.0-16.0) g/dl Hct 35.9 L (37.0-47.0) % MCV 90.7 (80.0-98.0) fL MCH 30.3 (27.0-33.0) pg MCHC 33.4 (31.0-35.0) g/dl RDW 12.6 (11.0-16.0) % Plt Count 349 (160-400) X10*3/uL MPV 9.2 L (9.4-12.3) fL Immature Gran % (Auto) 0.2 (0.0-0.4) % Neut % (Auto) 72.1 (45-73) % Lymph % (Auto) 21.4 (20-40) % [place] % (Auto) 5.1 (2-11) % Eos % (Auto) 0.4 (0-4) % Baso % (Auto) 0.8 (0-2) % Lymph # (Auto) 1.8 (1.2-4.9) X10*3/uL [place] # (Auto) 0.4 (0.1-1.2) X10*3/uL Eos # (Auto) 0.0 (0.0-0.4) X10*3/uL Baso # (Auto) 0.1 (0.0-0.2) X10*3/uL Abs Immat Gran (auto) 0.02 (0.00-0.03) X10*3/uL Absolute Neuts (auto) 6.1 (2.0-8.3) x10*3/uL Absolute Nucleated RBC 0.000 (0.0-0.012) X10*3/uL Nucleated RBC % (auto) 0.0 (0.0-0.2) /100WBC PT 13.7 H (10.0-13.1) SEC INR 1.2 H (0.9-1.1) APTT 34.9 (26.0-36.4) SEC Estimat Average Glucose mg/dL Hemoglobin A1c % % Ferritin (10-122) ng/mL 25-OH Vitamin D Total (>30) ng/mL TSH (0.32-4.0) uIU/mL COVID-19 ([facility]) (Negative) COVID-19 Clin Com Blood Type O Positive Antibody Screen NEGATIVE 06/20/22 06/20/22 06/20/22 Range/Units 11:11 11:11 11:24 WBC (4.8-10.8) X10*3/uL RBC (4.20-5.50) X10*6/uL Hgb (12.0-16.0) g/dl Hct (37.0-47.0) % MCV (80.0-98.0) fL MCH (27.0-33.0) pg MCHC (31.0-35.0) g/dl RDW (11.0-16.0) % Plt Count (160-400) X10*3/uL MPV (9.4-12.3) fL Immature Gran % (Auto) (0.0-0.4) % Neut % (Auto) (45-73) % Lymph % (Auto) (20-40) % [place] % (Auto) (2-11) % Eos % (Auto) (0-4) % Baso % (Auto) (0-2) % Lymph # (Auto) (1.2-4.9) X10*3/uL [place] # (Auto) (0.1-1.2) X10*3/uL Eos # (Auto) (0.0-0.4) X10*3/uL Baso # (Auto) (0.0-0.2) X10*3/uL Abs Immat Gran (auto) (0.00-0.03) X10*3/uL Absolute Neuts (auto) (2.0-8.3) x10*3/uL Absolute Nucleated RBC (0.0-0.012) X10*3/uL Nucleated RBC % (auto) (0.0-0.2) /100WBC PT (10.0-13.1) SEC INR (0.9-1.1) APTT (26.0-36.4) SEC Estimat Average Glucose 80 mg/dL Hemoglobin A1c % 4.4 % Ferritin 68 (10-122) ng/mL 25-OH Vitamin D Total 16.1 (>30) ng/mL TSH 0.43 (0.32-4.0) uIU/mL COVID-19 ([facility]) Negative (Negative) COVID-19 Clin Com See Note Blood Type Antibody Screen Narrative Narrative: EKG 06/2022 Vent. Rate : 059 BPM ? ? Atrial Rate : 059 BPM ?? P-R Int : 168 ms? QRS Dur : 094 ms ? ? QT Int : 412 ms ? ? ? P-R-T Axes : 009 016 010 degrees ?? QTc Int : 407 ms ? Sinus bradycardia with sinus arrhythmia Otherwise normal ECG When compared with ECG of 18-OCT-2021 11:23, No significant change was found Assessment and Plan Assessment Anesthesia Assessment: Chart Reviewed Final Anesthetic Review Family History of Problems with Anesthesia: No History of Problems with Anesthesia: No Documented by User: Nelida Murray MD 09/20/22 10:00 HPI - Anesthesia Eval Consult details Narrative: 32yo F for Gastrectomy Sleeve, egd, poss diaphragmatic hernia,poss ventral hernia,poss open s/p EGD 06/29/22 and 08/2022 with MAC previously aborted gastric sleeve 06/22/22 d/t adhesions PMFSH Active Problems Active Problems: All Active Problems (Updated 09/20/22 @ 07:15 by Nelida Murray MD) Depressed mood (Acute) Vertigo (Acute) Upper respiratory tract infection (Acute) Adult general medical exam (Acute) Choking sensation (Acute) Generalized anxiety disorder (Acute) Scar tissue (Acute) Helicobacter pylori (H. pylori) (Acute) Encounter for removal and reinsertion of Nexplanon (Acute) Overweight (BMI 25.0-29.9) (Acute) Vitamin D deficiency (Acute) Hypertension (Acute) Hypercholesterolemia (Acute) Obesity (BMI 30-39.9) (Acute) Past Medical History Medical History Allergic otitis media of both ears Anxiety Gestational hypertension Hypercholesterolemia Hypertension Insomnia Obesity (BMI 30-39.9) Vitamin D deficiency Surgical History Surgical History (Updated 09/20/22 @ 09:56 by Nelida Murray MD) History of cholecystectomy History of esophagogastroduodenoscopy (EGD) Hx of laparoscopy Right ovarian cyst Social History Social History Housing: Condominium Are you a primary home health care physician to a significant other at home: Yes (children) Do you presently have visiting nurse or other home services: No Alcohol intake: never Patient Tobacco Use Status: Never used Tobacco e-Cigarette/Vaping Use: Never Used Second Hand Smoke Exposure: No Use of substances other than those prescribed or required for medical reasons: No Have you been hit, kicked, punched, or otherwise hurt by someone within the past year? If so, by whom?: No Are you DNR?: No Advance Directives: No Advance Directives Information Provided: Yes Advance Directives on File: No Recently lost weight without trying: No Nutrition Risks: No Nutritional Risk Patient : No FDLMP: 09/04/2022 : No Poor oral hygiene: No service: No Current occupational status: employed ([employer] Cognitive needs: No Hearing needs: No Vision needs: No Meds Allergies Allergy/AdvReac Type Severity Reaction Status Date / Time No Known Allergies Allergy Verified 09/19/22 14:45 [No Known Allergies*] Home Medications Medication Instructions Recorded Confirmed Last Taken Type etonogestrel 68 mg subdermal subdermal 04/21/22 09/19/22 09/19/22 History implant (Nexplanon) Exam Height,Weight and Vital Signs: Height 6 ft Weight 94.801 kg Vital Signs Temp Pulse Resp BP Pulse Ox O2 Del Method 09/20/22 06:30 97.1 F 74 16 129/60 97 Room Air Pertinent Lab Results Pertinent Lab Results: Lab Results 06/20/22 06/20/22 06/20/22 Range/Units 11:11 11:11 11:11 WBC 8.4 (4.8-10.8) X10*3/uL RBC 3.96 L (4.20-5.50) X10*6/uL Hgb 12.0 (12.0-16.0) g/dl Hct 35.9 L (37.0-47.0) % MCV 90.7 (80.0-98.0) fL MCH 30.3 (27.0-33.0) pg MCHC 33.4 (31.0-35.0) g/dl RDW 12.6 (11.0-16.0) % Plt Count 349 (160-400) X10*3/uL MPV 9.2 L (9.4-12.3) fL Immature Gran % (Auto) 0.2 (0.0-0.4) % Neut % (Auto) 72.1 (45-73) % Lymph % (Auto) 21.4 (20-40) % [place] % (Auto) 5.1 (2-11) % Eos % (Auto) 0.4 (0-4) % Baso % (Auto) 0.8 (0-2) % Lymph # (Auto) 1.8 (1.2-4.9) X10*3/uL [place] # (Auto) 0.4 (0.1-1.2) X10*3/uL Eos # (Auto) 0.0 (0.0-0.4) X10*3/uL Baso # (Auto) 0.1 (0.0-0.2) X10*3/uL Abs Immat Gran (auto) 0.02 (0.00-0.03) X10*3/uL Absolute Neuts (auto) 6.1 (2.0-8.3) x10*3/uL Absolute Nucleated RBC 0.000 (0.0-0.012) X10*3/uL Nucleated RBC % (auto) 0.0 (0.0-0.2) /100WBC PT 13.7 H (10.0-13.1) SEC INR 1.2 H (0.9-1.1) APTT 34.9 (26.0-36.4) SEC Estimat Average Glucose mg/dL Hemoglobin A1c % % Ferritin (10-122) ng/mL 25-OH Vitamin D Total (>30) ng/mL TSH (0.32-4.0) uIU/mL COVID-19 ([facility]) (Negative) COVID-19 Clin Com Blood Type O Positive Antibody Screen NEGATIVE 06/20/22 06/20/22 06/20/22 Range/Units 11:11 11:11 11:24 WBC (4.8-10.8) X10*3/uL RBC (4.20-5.50) X10*6/uL Hgb (12.0-16.0) g/dl Hct (37.0-47.0) % MCV (80.0-98.0) fL MCH (27.0-33.0) pg MCHC (31.0-35.0) g/dl RDW (11.0-16.0) % Plt Count (160-400) X10*3/uL MPV (9.4-12.3) fL Immature Gran % (Auto) (0.0-0.4) % Neut % (Auto) (45-73) % Lymph % (Auto) (20-40) % [place] % (Auto) (2-11) % Eos % (Auto) (0-4) % Baso % (Auto) (0-2) % Lymph # (Auto) (1.2-4.9) X10*3/uL [facility] # (Auto) (0.1-1.2) X10*3/uL Eos # (Auto) (0.0-0.4) X10*3/uL Baso # (Auto) (0.0-0.2) X10*3/uL Abs Immat Gran (auto) (0.00-0.03) X10*3/uL Absolute Neuts (auto) (2.0-8.3) x10*3/uL Absolute Nucleated RBC (0.0-0.012) X10*3/uL Nucleated RBC % (auto) (0.0-0.2) /100WBC PT (10.0-13.1) SEC INR (0.9-1.1) APTT (26.0-36.4) SEC Estimat Average Glucose 80 mg/dL Hemoglobin A1c % 4.4 % Ferritin 68 (10-122) ng/mL 25-OH Vitamin D Total 16.1 (>30) ng/mL TSH 0.43 (0.32-4.0) uIU/mL COVID-19 ([facility]) Negative (Negative) COVID-19 Clin Com See Note Blood Type Antibody Screen Laboratory Results - last 24 hr 09/19/22 09/20/22 09/20/22 15:15 06:14 06:48 Urine Test NEGATIVE COVID-19 ([facility]) Negative COVID-19 Clin Com See Note Blood Type O Positive Antibody Screen NEGATIVE Airway Mallampati Class: II TM Dist: >3cm Neck ROM: Full Loose/Missing/Broken Teeth: No (Denies broken, loose, missing teeth) Heart: RRR Lungs: CTAB Assessment and Plan Assessment Anesthesia Assessment: Anesthesia Plan Discussed Final Anesthetic Review NPO: Yes ASA Class: III Final Preanesthetic Review: No Changes in Pt Med Stat, Meds/Allgs Chart Reviewed, Consent Obtained/Reviewed and Anes Risks/Benef Reviewed Patient Risk: Intermediate Procedure Risk: Intermediate Assessment/Block/Sedation in : Assess/Block/Sedation- Anesthetic Plan Anesthetic Plan: GA Disposition: Standard PACU and Inp. Admit - Standard Bed
[2022-09-19 15:51] LABS: COVID-19 Test Negative (Negative); IDNOW Serial# 9DB6401D
[2022-09-20] VITALS (10 sets, daily range): BP systolic 129–151; BP diastolic 60–83; PULSE 50–102; RESP 16–24; TEMP 36.1–37; O2SAT 95–100
[2022-09-20 06:29] LABS: UPreg QC Valid YES; Urine Pregnancy NEGATIVE (NEGATIVE)
--- NOTE | 2022-09-20 06:40 | PCN2_ITS ---
Brief Operative Note Date of procedure: 09/20/22 Procedure: Preop diagnosis: [Obesity, hypercholesterolemia, hypertension, H pylori, perigastric adhesions of unclear etiology] Postop diagnosis: [same ] Procedure: [ Laparoscopic sleeve gastrectomy, lysis of adhesions for 93 minutes, intraoperative upper endoscopy and gastropexy] Surgeon: Issac Colon MD Assist: [Musa Arroyo MD; Natasha Larson PA-C] Anesthesia: [GET; Local: Marcaine, 0.5% with epi] Estimated blood loss: [20 cc] Specimen: [Portion of stomach with fundus] Intraoperative findings: [Adhesions from the anterior stomach to liver remained. Adhesions from the lateral anterior peritoneal surface to the stomach were also present requiring lysis of adhesions for 93 minutes. No hiatal hernia was appreciated; scarring was noted on the liver capsule and splenic capsule as well as the anterior stomach, as well as in the hepatic fossa from her prior cholecystectomy.] Indications: [The patient is a 32-year-old woman with a lifelong struggle with obesity that is failed medical management. She entered our program at a weight of 260 lb with a BMI of 35.3?and has hypertension and hypercholesterolemia.? She reported a prior abdominal operation of a lap choly and an abdominal plasty, both in [place].? After reviewing the options including medical management and gastric bypass, the patient wanted to proceed with laparoscopic sleeve gastrectomy, possible hiatal hernia repair, intraoperative endoscopy and possible ventral hernia repair.? I reviewed the inherent risks of this procedure which include, but are not limited to:? Bleeding that could require another operation or blood transfusion; the inherent risks of transfusion reaction infectious disease from blood transfusions; the risk of staple line leaks that could cause sepsis, multi-system organ failure and ; the risk of mesenteric or deep vein thrombosis of the lower extremities that could cause a fatal pulmonary embolism was reviewed; the risk of GERD that could require conversion to gastric bypass was discussed; the risk of recurrent hiatal hernia, especially in the setting of weight regain was reviewed.? The risk of weight regain if maladaptive eating and sedentary behavior continue was discussed.? The importance of proper diet and increased activity to augment surgical weight loss and the fact that no operation would result in weight loss of poor dietary decisions and sedentary behavior are resumed were discussed at length and apparently understood.? The patient had attempted sleeve gastrectomy on 06/21/2022 and due to unexpected adhesions between the stomach and liver as well as the stomach and anterior abdominal wall, the procedure was aborted and she was evaluated for possible etiology for these adhesions and treated for H pylori identified on EGB Bx; Repeat EGD & Bx confirmed eradication of H. pylori. Yesterday in the office, the plan to proceed with the unlikely but possible issue of aborting the sleeve for safety reasons was discussed and apparently understood. Patient seemed understand all of her options and wanted to proceed.] Procedure: [The patient was identified in the preoperative holding by myself and again an operating room 6. She was placed supine on the table. Safety straps were utilized and a footboard utilized. The patient was induced in general endotracheal anesthesia administered with excellent effect. An appropriate time-out was performed. The patient's abdomen was then widely prepped and draped in the usual manner for surgery using chlorprep. Antibiotics per protocol were administered by Anesthesia. After infiltrating preemptive local in the skin and subcutaneous tissues in the left upper quadrant, a stab incision was made sharply in the left subcostal abdomen and the Veress needle inserted without incident. An appropriate drop test was performed then a pneumoperitoneum of 15 mmHg was obtained using carbon dioxide. Opening pressures were __ mmHg. Next, a 5 mm 0 degree scope over a 5 mm Optiview trocar was used to access the abdomen via the epigastric incision in the midline. Once the abdomen was entered, the the trocar obturator was removed and the laparoscope was used to confirm there was no injury from the Veress needle nor trocar insertion injury to the bowel or mesentery, then the scope was switched to a 5 mm 45 degree laparoscope. Next, using preemptive local, additional 5 mm trocars were placed under direct laparoscopic vision on the patient's left abdomen, then right and the 5 mm midline trocar upsized to a 12 mm to accommodate the stapler. The patient was then positioned in reverse Trendelenburg and the liver retractor deployed through the right lateral 5 mm trocar and secured. A 40 [place] ViSiGi bougie was inserted by Anesthesia per os and advanced to the stomach to decompress. It was then withdrawn to the GE junction all under direct laparoscopic vision. Dissection was begun along the greater curvature using the 5 mm [place] LigaSure for hemostasis and continued to the left lian of the diaphragm. Dissection was then carried towards the pylorus to 3-4 cm from the pylorus and retro gastric adhesions lysed. The gastroesophageal fat pad was carefully mobilized taking care to avoid injury to the esophagus and stomach and dissection carried towards the short gastrics taking care to avoid injury to the spleen and splenic artery. The diaphragmatic hiatus was carefully examined for a hernia, and no apparent hernia was appreciated. Next, the 40 Fr ViSiGi bougie was advanced by anesthesia under direct vision and laparoscopic guidance and positioned in the antrum approximately 3 cm from the pylorus using laparoscopic graspers to serve as a guide for a stapled sleeve gastrectomy. Stapling was performed with [employer] stapler with a purple 45 and then orange 45 and 60 loads. The bougie served as a guide to maintain the same sleeve caliber to avoid stricture & sleeve distortion. The 10 mm clip corporation secretary was used to apply additional clips to the staple line. Care was taken to be sure that the sleeve laid flat and was without stricture. Once the sleeve was complete, the portion of stomach was placed in the lower abdomen to be sent for removal and permanent section. The staple line, gastrocolic omentum, spleen and short gastric areas were all inspected for hemostasis which was found to be good. Next, the bougie was withdrawn under laparoscopic vision used to suction the esophagus and hypopharynx and then discarded. After inspecting again for hemostasis, a gastropexy was performed using 2-0 Polysorb suture to secure the sleeve gastrectomy to the gastrocolic omentum. Next, I broke scrub perform an on-table upper endoscopy to assess the sleeve and the esophagus and stomach. The patient was returned to neutral position and the Olympus 160 gastroscope was advanced taking care to preserve the endotracheal tube. The esophagus was intubated without incident. Minimal air was insufflated and the scope advanced into the newly formed sleeve. The staple line was inspected for hemostasis and the morphology of the sleeve appeared straight with a uniform diameter. Intraoperatively, there was no evidence of staple line leak seen during laparoscopy as air was insufflated via endoscope. The scope was then used to aspirate the air from the sleeve withdrawn and removed. I then rescrubbed to return to the operative field and again inspected the field for hemostasis. After final assessment for hemostasis, the patient was returned to neutral position, a Jimmy used to withdraw the resected gastric specimen which was sent for permanent section. The fascia of the 12 mm midline was closed using an 0 Polysorb figure of 8 on a suture passer under direct laparoscopic vision. The abdomen was then deflated and all trocars removed. The suture was then tied and the skin closed with 4-0 Monocryl subcuticular sutures. The abdomen was then washed and dried, benzoin and Steri-Strips applied followed by Tegaderms. The patient tolerated the procedure well was then extubated the recover in stable condition. All sponge needle and instrument counts were correct x2. At the patient's request, I contacted Jules at [phone] to apprise him of the additional time spent cutting scar tissue but that there was no other pathology the prevented proceeding with a laparoscopic sleeve gastrectomy. His questions seemed to be satisfactorily answered.]
--- NOTE | 2022-09-20 06:41 | MHC.SHP ---
Pre-Procedural Eval Section A Date of Service: 09/20/22 The patient is an INPATIENT: Yes The History & Physical has been completed within 30 days and I have reviewed it.: Yes Section B Chief Complaint: Morbid (severe) obesity due to excess calories Allergies: Allergies Allergy/AdvReac Type Severity Reaction Status Date / Time No Known Allergies Allergy Verified 09/19/22 14:45 [No Known Allergies*] Plan I have reviewed the history and physical and performed a pertinent physical examination on my patient. No changes have occurred unless specified. Time Spent With Patient Time: Total time managing care of this patient today ____ minutes.
[2022-09-20] MEDS: Lactated Ringers 1,000 ML 150 ML IVCONT (06:46)
[2022-09-20] MEDS: Scopolamine 1.5 MG PATCH.TD.3 TRANSDERMA (06:51)
[2022-09-20] MEDS: Aprepitant 32 MG/4.4 ML VIAL IVPUSH (06:54)
--- NOTE | 2022-09-20 07:47 | PHA.MEDREC ---
Pharmacy Consult ? Medication Reconciliation Pharmacy has completed the medication reconciliation.
--- NOTE | 2022-09-20 11:32 | P.DS_ITS ---
DS: Providers Provider Date of Service: 09/21/22 Date of admission: 09/20/22 06:10 Primary care physician: Kendra Hayden MD DS: Summary Hospital Course Hospital Course: ADMITTING DIAGNOSIS: obesity,?HTN, HLD, anxiety DISCHARGE DIAGNOSIS: same, s/p laparoscopic sleeve gastrectomy, gastropexy, and extensive AMALIA PAST SURGICAL HISTORY:?cholecystectomy, R ovarian cyst ? PROCEDURE: upper endoscopy, laparoscopic sleeve gastrectomy and gastropexy with lysis of adhesions 90 minutes DISCHARGE SUMMARY: History of Present Illness: The patient is a?32 year-old woman with a BMI of?28.2 kg/m2 and associated co- morbidities as described above. The patient had extensive work-up, lost?51 lbs preoperatively and was electively scheduled for laparoscopic, possible open sleeve gastrectomy and gastropexy. Risks and complications of the surgery were discussed with the patient in advance, particularly the possibility of , pulmonary embolism, anastomotic leak, bleeding, bowel injury, GERD, cardiac, renal or pulmonary complications. The patient understood all the risks and was in agreement with the surgical plan. At the time of first attempt to perform a sleeve gastrectomy in June 2022, she was found to have dense adhesions from the anterior gastric wall and fundus to the peritoneal surface, as well as dense adhesions of the entire liver. The procedure was aborted at the time and rescheduled to this hospital admission after additional workup including endoscopy. Hospital Course: The patient underwent a laparoscopic sleeve gastrectomy with gastropexy with lysis of adhesions 90 minutes on the day of admission. Postoperatively, the patient was transferred to the surgical floor. The patient received IV Acetaminophen and IV dilaudid for pain control. Patient was started on bariatric phase 1 diet POD #0. On postoperative day one, the patient was feeling well without nausea, vomiting, fevers, or tachycardia. The patient had some mild incisional pain and the abdomen was soft.? On the morning of postoperative day one, the patient was continued on 1 ounce of water or ice every half hour. During the day, the patient did fairly well, having some incisional pain, but able to ambulate adequately and to tolerate liquids well. Since the patient is doing well, we decided that the patient was ready to be discharged. The patient was given instructions to follow-up with me next week and to call the office for any fever over 101, persistent abdominal pain, nausea, vomiting, GERD, symptoms of DVT such as calf tenderness, or leg swe lling, or pulmonary embolism such as chest pain or shortness of breath.? The patient was also instructed to drink 40-60 ounces of liquids per day using the 1-ounce cups. The patient had been given prescriptions for Tylenol for pain, Zofran prn for nausea, and pantoprazole and carafate previously. The patient was encouraged to ambulate and use the incentive spirometer. The patient was allowed to shower, but no baths, and encouraged to stay active at home. All of these instructions were given to the patient personally. All questions were answered and the patient understood all instructions, the instructions were also given to the patient in print. Time Spent with Patient Time attestation: Total time managing care of this patient today ____ minutes. Discharge coordination time: Less than 30 minutes Quality: Safe Use of Opioids Does Pt have an Active Cancer Diagnosis on the Problem List?: No Quality: Stroke Does the patient have a stroke diagnosis?: No Physical Exam Vital Signs: Vital Signs: Last Vital Signs Temp 97.1 F 09/20/22 06:30 Pulse 74 09/20/22 06:30 Resp 16 09/20/22 06:30 BP 129/60 09/20/22 06:30 Pulse Ox 97 09/20/22 06:30 O2 Del Method Room Air 09/20/22 06:30 BMI result Body Mass Index 28.3 DS: Data Data Completed and Pending Pending studies at discharge: Pending at discharge 09/20/22 10:34 Surgical [PTH] Routine Labs on day of discharge: Laboratory Results - last 24 hr 09/19/22 09/20/22 09/20/22 15:15 06:14 06:48 Urine Test NEGATIVE COVID-19 ([facility]) Negative COVID-19 Clin Com See Note Blood Type O Positive Antibody Screen NEGATIVE Discharge Plan Discharge Anticipated Discharge Date/Time: 09/21/22 10:00 Patient Disposition: Home, Self-Care Discharge Diagnosis: s/p laparoscopic sleeve gastrectomy with gastropexy and AMALIA Referrals: Kendra Hayden MD [Primary Care Provider] - 1 Week Discharge Medications: Continued (DME) blood pressure monitor Kit See Rx Instructions .Route Qty: 1 0RF Rx Instructions: As directed pantoprazole 40 mg tablet,delayed release (DR/EC) 40 mg PO QAM 30 Days Qty: 30 2RF sucralfate 100 mg/mL suspension 10 ml PO BID 30 Days Qty: 600 2RF acetaminophen 500 mg/15 mL liquid 500 mg PO Q6H PRN (Reason: fever or pain) Qty: 237 2RF ondansetron HCl 4 mg tablet 4 mg PO Q6H PRN (Reason: nausea and vomiting) Qty: 20 0RF Discontinued cholecalciferol (vitamin D3) 125 mcg (5,000 unit) capsule 125 mcg PO DAILY Qty: 30 3RF cyanocobalamin (vitamin B-12) 500 mcg tablet 500 mcg PO DAILY Qty: 30 2RF thiamine HCl (vitamin B1) 100 mg tablet 100 mg PO DAILY Qty: 30 2RF vitamin A palmitate 10,000 unit capsule 10,000 unit PO DAILY Qty: 30 1RF Nexplanon 68 mg implant subdermal lisinopril 10 mg tablet 10 mg PO DAILY Qty: 30 2RF Discharge Orders: Discharge Order (Routine); Ordered 09/21/22 Ordered By: Lydia Santa Activity on Discharge: No heavy lifting Stand Alone Forms: Patient Portal Discharge page Care Plan Goals: weight loss Health Concerns: obesity/overweight Plan of Treatment: No tub baths, sex or returning to work until discussed at first post op appointment. No alcohol, tobacco or illegal drug use. Continue to use incentive spirometer hourly while awake. Walk in home for 5- 10 minutes every 2 hours during the first week. Wear abdominal binder with activity. Follow all meal plan instructions from your bariatric surgeon. Review bariatric handbook and call with any questions. Discharge Instructions 1. Please call your doctor or come back to the emergency room should any new symptoms arise. 2. Activity: abstain from alcohol,? limited stair climbing, no bending, no driving, no exercise, no illicit substances, no lifting, no sex, no tub bath, no work. 4. Diet: follow your bariatric surgeons recommendations for advancing diet. 5. Dressing Change/Wound Care: Your incisions are covered with waterproof dressings. You can shower with these and pat dry. Do not rub over dressings or incisions. If the area is tender, you may apply an ice pack for short intervals (no more than 20 minutes on, followed by at least 20 minutes off). Do not apply heat. Do not use creams, lotions, or topical antibiotics unless instructed to do so by your surgeon. 6. Call your doctor if: - Your temperature exceeds 101.5 F - You experience excessive pain or swelling - You have an unexpected reaction to medication - You have excessive bleeding - You experience continued vomiting/nausea - Your incision begins to separate - Your incision shows signs of infection such as increased redness, swelling, excessive pain, heat, or drainage (light blood or clear fluid is normal) General instructions: No lifting greater than 10 lbs for the next 6 weeks[address] driving within 24 hours of taking narcotic pain medications. If you do not move your bowels in the next 2 days, please take milk of magnesia over the counter. Please follow the post op diet and do not advance your diet until you are seen in the office in about 2 weeks. Please walk around your home every hour or two to prevent blood clots from forming in your legs. You do not need to wake from sleeping to walk. Please sleep in a bed or couch to prevent kinking at the hips and knees. Please take your incentive spirometer (your lung fermentation operator) home with you and use it for the next few days to prevent pneumonias. You may shower, no hot tubs, baths or swimming pools. Please call the office with any questions or concerns such as increasing abdominal pain, fever, chills, shortness of breath, chest pain, leg pain or swelling, or redness or drainage from your incisions. Please make sure you are consuming 40-60 ounces of total fluids per day. Avoid all carbonation. Do not hesitate to contact the office with any questions at . The patient's medical history has been reviewed and they are considered low risk for post op DVT and therefore DVT prophylaxis is not considered necessary. Travel after surgery was reviewed. The patient has not disclosed any travel plans during the first 30 days after surgery and they have been advised that within the first 30 days after surgery any bus, plane, train or car travel over 2 hours in duration is contraindicated due to the possibility of developing blood clots from immobility. Any travel, needs to include periods of ambulation of 10 minutes in duration every 2 hours.? The patient was instructed to discuss any plans for travel during this period with their bariatric surgeon. Assessment: s/p laparoscopic sleeve gastrectomy and gastropexy with AMALIA Discharge Date/Time: 09/21/22 10:09
[2022-09-20 12:02] LABS: Hematocrit 36.9 % (37.0-47.0); Hemoglobin 12.1 g/dl (12.0-16.0)
[2022-09-20 12:20] LABS: Anion Gap 13 (12-20); Blood Urea Nitrogen 9 mg/dL (9-16); Calcium 8.8 mg/dL (8.4-10.2); Carbon Dioxide 23 mmol/L (22-29); Chloride 106 mmol/L (96-108); Creatinine Clr Calc Pharmacy 139.6; Estimated Glomerular Filt Rate > 60; Glucose Random 143 mg/dL (60-115); Potassium 3.7 mmol/L (3.3-5.1); Sodium 138 mmol/L (135-145)
--- NOTE | 2022-09-20 12:26 | PM.PNGS ---
Subjective Subjective Date of Service: 09/20/22 Patient reports: still having pain and nausea Interval history: The patient is seen in room 357 postoperatively and she reports she is having some tolerable pain and some nausea as well as tolerating bariatric stage I diet. She has had no vomiting and denies any difficulty breathing, shortness of breath or regurgitation. Physical Exam Vital Signs: Vital Signs: Last Vital Signs Temp 97.1 F 09/20/22 11:27 Pulse 77 09/20/22 12:02 Resp 22 H 09/20/22 12:02 BP 142/74 H 09/20/22 12:02 Pulse Ox 95 09/20/22 12:02 O2 Del Method Room Air 09/20/22 12:02 O2 Flow Rate 2 09/20/22 11:42 BMI result Body Mass Index 28.3 On exam, she is nontoxic She is in no acute respiratory distress Abdominal binder intact Objective Data Active Medications Fentanyl (Fentanyl Citrate/Pf 100 Mcg/2 Ml Vial) 25 mcg IVPUSH Q5M PRN; Protocol PRN Reason: Pain, Moderate (Pain Scale 4-6 Hydromorphone HCl (Hydromorphone Hcl 0.5 Mg/0.5 Ml Syringe) 0.25 mg IVPUSH Q5M PRN; Protocol PRN Reason: Pain, Severe (Pain Scale 7-10) Lactated Ringer's (Lr) 1,000 mls @ 150 mls/hr IVCONT .Q6H40M [facility] Last Admin: 09/20/22 06:46 Dose: 150 mls/hr Documented By: COMFORT Promethazine HCl 6.25 mg/ (Sodium Chloride) 50.25 mls @ 201 mls/hr IV ONCE PRN PRN Reason: Nausea and Vomiting Lactated Ringer's (Lr) 1,000 mls @ 100 mls/hr IVCONT .Q10H [facility] Ondansetron HCl (Ondansetron Hcl 4 Mg/2 Ml Vial) 4 mg IVPUSH ONCE PRN PRN Reason: Nausea and Vomiting Labs 09/20/22 11:55 09/20/22 11:55 Labs: Laboratory Results - last 24 hr 09/19/22 09/20/22 09/20/22 15:15 06:14 06:48 Anion Gap Estim Creat Clear Calc Estimated GFR Random Glucose Calcium Urine Test NEGATIVE COVID-19 ([facility]) Negative COVID-19 Clin Com See Note Blood Type O Positive Antibody Screen NEGATIVE 09/20/22 11:55 Anion Gap 13 Estim Creat Clear Calc 139.6 Estimated GFR > 60 Random Glucose 143 H Calcium 8.8 Urine Test COVID-19 ([facility]) COVID-19 Clin Com Blood Type Antibody Screen Procedures Date of Service Date of Service: 09/20/22 Progress Note: A&P Assessment and plan (1) S/P laparoscopic sleeve gastrectomy: Status: Acute (2) Scar tissue: Status: Acute (3) Overweight (BMI 25.0-29.9): Status: Acute (4) Hypertension: Status: Acute (5) Hypercholesterolemia: Status: Acute Plan The patient declined an foreign language interpreter. Explained that I called Jules as she requested. I briefed her on the operation, postoperative plan and her questions seemed to be satisfactorily answered. Time Spent With Patient Time: Total time managing care of this patient today ____ minutes. Quality Stroke Does the patient have a stroke diagnosis?: No VTE Prior VTE?: No VTE Risk Level:: Surgical - moderate VTE Device Contraindication: N/A - Device Ordered VTE Drug Contraindication: Treatment Not Indicated
[2022-09-20] MEDS: Lactated Ringers 1,000 ML 100 ML IVCONT ×2 (12:51→21:42)
[2022-09-20] MEDS: ondansetron HCL 4 MG/2 ML VIAL IVPUSH ×2 (12:51→20:14)
[2022-09-20] MEDS: ceFAZolin Sodium/Dextrose,Iso 2 GM/50 ML PIGGYBACK IV (14:00)
[2022-09-20] MEDS: Acetaminophen 1,000 MG/100 ML PIGGYBACK 16.7 MG IV ×2 (14:44→19:26)
[2022-09-20] MEDS: Metoclopramide HCl 10 MG/2 ML VIAL IVPUSH (17:22)
[2022-09-20] MEDS: Famotidine/PF 20 MG/2 ML VIAL IVPUSH (20:14)
[2022-09-21] MEDS: Acetaminophen 1,000 MG/100 ML PIGGYBACK 16.7 MG IV (01:21)
[2022-09-21 03:08] VITALS: BP 149/72; PULSE 55; RESP 16; TEMP 37.2; O2SAT 98
[2022-09-21] MEDS: ondansetron HCL 4 MG/2 ML VIAL IVPUSH (04:35)
[2022-09-21 06:10] LABS: MANUAL DIFF FLAG NO
[2022-09-21 06:16] LABS: Basophils Absolute Auto 0.1 X10*3/uL (0.0-0.2); Basophils Percent Auto 0.3 % (0-2); Hematocrit 33.1 % (37.0-47.0); Imm Gran Abs Auto 0.07 X10*3/uL (0.00-0.03); Imm Gran Pct Auto 0.4 % (0.0-0.4); Lymphocytes Percent Auto 10.6 % (20-40); Mean Corpuscular HGB Conc 33.2 g/dl (31.0-35.0); Mean Corpuscular Hemoglobin 30.7 pg (27.0-33.0); Mean Corpuscular Volume 92.5 fL (80.0-98.0); Monocytes Absolute Auto 1.3 X10*3/uL (0.1-1.2); Monocytes Percent Auto 6.9 % (2-11); Neutrophils Absolute Auto 15.1 x10*3/uL (2.0-8.3); Neutrophils Percent Auto 81.8 % (45-73); Platelet Count 322 X10*3/uL (160-400); Red Blood Count 3.58 X10*6/uL (4.20-5.50); Red Cell Distribution Width 12.4 % (11.0-16.0); White Blood Count 18.4 X10*3/uL (4.8-10.8)
[2022-09-21 06:54] LABS: Anion Gap 9 (12-20); Blood Urea Nitrogen 6 mg/dL (9-16); Calcium 8.3 mg/dL (8.4-10.2); Carbon Dioxide 26 mmol/L (22-29); Chloride 105 mmol/L (96-108); Creatinine Clr Calc Pharmacy 158.9; Estimated Glomerular Filt Rate > 60; Glucose Random 95 mg/dL (60-115); Potassium 4.1 mmol/L (3.3-5.1); Sodium 136 mmol/L (135-145)
--- NOTE | 2022-09-21 06:58 | P.PNGS_ITS ---
Subjective Subjective Date of Service: 09/21/22 Patient reports: feels better, pain is less and tolerating liquids well Interval history: The patient is seen in her room, specifically, she is washing her hair and doing her morning care in her bathroom. She reports that she feels much better, has no significant pain, no nausea and is tolerating water sips. She denies any odynophagia, dysphagia, regurgitation, vomiting or hematemesis. She feels very well and is anxious for discharge. Physical Exam Vital Signs: Vital Signs: Last Vital Signs Temp 98.9 F 09/21/22 03:08 Pulse 55 09/21/22 03:08 Resp 16 09/21/22 03:08 BP 149/72 H 09/21/22 03:08 Pulse Ox 98 09/21/22 03:08 O2 Del Method Room Air 09/21/22 03:08 O2 Flow Rate 2.0 09/20/22 15:19 BMI result Body Mass Index 28.3 On exam, she is nontoxic and in good spirits She is in no acute respiratory distress Her abdominal binder is intact and appropriate incisional tenderness is noted Objective Data Active Medications Famotidine (Famotidine/Pf 20 Mg/2 Ml Vial) 20 mg IVPUSH BID [facility] Last Admin: 09/20/22 20:14 Dose: 20 mg Documented By: ALFONSO Hydromorphone HCl (Hydromorphone Hcl 0.5 Mg/0.5 Ml Syringe) 0.25 mg IVPUSH Q4H PRN; Protocol PRN Reason: Pain, Moderate (Pain Scale 4-6 Lactated Ringer's (Lr) 1,000 mls @ 100 mls/hr IVCONT .Q10H [facility] Last Admin: 09/20/22 21:42 Dose: 100 mls/hr Documented By: ALFONSO Acetaminophen (Ofirmev) 1,000 mg in 100 mls @ 16.7 mls/hr IV .Q6H [facility] Last Admin: 09/21/22 01:21 Dose: 16.7 mls/hr Documented By: ALFONSO Metoclopramide HCl (Metoclopramide Hcl 10 Mg/2 Ml Vial) 10 mg IVPUSH Q6H PRN PRN Reason: Nausea Last Admin: 09/20/22 17:22 Dose: 10 mg Documented By: JUAREZ Ondansetron HCl (Ondansetron Hcl 4 Mg/2 Ml Vial) 4 mg IVPUSH Q8H [facility] Last Admin: 09/21/22 04:35 Dose: 4 mg Documented By: ALFONSO Sodium Chloride (0.9 % Sodium Chloride Flush 3 Ml Syringe) 3 ml IVFLUSH QSHIFT [facility] Last Admin: 09/21/22 01:22 Dose: Not Given Documented By: ALFONSO Non-Admin Reason: IV Running Labs 09/21/22 05:43 09/21/22 05:43 Labs: Laboratory Results - last 24 hr 09/20/22 09/20/22 09/21/22 06:48 11:55 05:43 MCV 92.5 MCH 30.7 MCHC 33.2 RDW 12.4 Plt Count 322 MPV 9.0 L Immature Gran % (Auto) 0.4 Neut % (Auto) 81.8 H Lymph % (Auto) 10.6 L [place] % (Auto) 6.9 Eos % (Auto) 0.0 Baso % (Auto) 0.3 Lymph # (Auto) 2.0 [place] # (Auto) 1.3 H Eos # (Auto) 0.0 Baso # (Auto) 0.1 Abs Immat Gran (auto) 0.07 H Absolute Neuts (auto) 15.1 H Absolute Nucleated RBC 0.000 Nucleated RBC % (auto) 0.0 Anion Gap 13 Estim Creat Clear Calc 139.6 Estimated GFR > 60 Random Glucose 143 H Calcium 8.8 Blood Type O Positive Antibody Screen NEGATIVE 09/21/22 05:43 MCV MCH MCHC RDW Plt Count MPV Immature Gran % (Auto) Neut % (Auto) Lymph % (Auto) [place] % (Auto) Eos % (Auto) Baso % (Auto) Lymph # (Auto) [place] # (Auto) Eos # (Auto) Baso # (Auto) Abs Immat Gran (auto) Absolute Neuts (auto) Absolute Nucleated RBC Nucleated RBC % (auto) Anion Gap 9 L Estim Creat Clear Calc 158.9 Estimated GFR > 60 Random Glucose 95 Calcium 8.3 L Blood Type Antibody Screen Procedures Date of Service Date of Service: 09/21/22 Progress Note: A&P Assessment and plan (1) S/P laparoscopic sleeve gastrectomy: Status: Acute (2) Scar tissue: Status: Acute (3) Hypercholesterolemia: Status: Acute (4) Hypertension: Status: Acute (5) Overweight (BMI 25.0-29.9): Status: Acute (6) Vitamin D deficiency: Status: Acute (7) Generalized anxiety disorder: Status: Acute Plan The patient clinically appears well. Hemoglobin level is stable. She has a leukocytosis, but given the lysis of adhesions, I would expect this and given the lack of tachycardia and the overall appearance of the patient, I suspect this is reactive in should resolved. Patient is ready for discharge after 1 of the PAs reviews postoperative diet instructions. Time Spent With Patient Time: Total time managing care of this patient today ____ minutes. Quality Stroke Does the patient have a stroke diagnosis?: No VTE Prior VTE?: No VTE Risk Level:: Surgical - moderate VTE Device Contraindication: N/A - Device Ordered VTE Drug Contraindication: Treatment Not Indicated
[2022-09-21] MEDS: Famotidine/PF 20 MG/2 ML VIAL IVPUSH (07:02)
[2022-09-21 07:05] VITALS: BP 142/67; PULSE 53; RESP 16; TEMP 36.8; O2SAT 98
--- NOTE | 2022-09-21 08:47 | HO.POSTANES ---
Post Anesthesia Evaluation Post Anesthesia Evaluation Vital Signs: Vital Signs Temp Pulse Resp BP Pulse Ox O2 Del Method 09/21/22 07:05 98.2 F 53 16 142/67 H 98 Room Air 09/21/22 03:08 98.9 F 55 16 149/72 H 98 Room Air Anesthesia: General Endotracheal-GETA Mental Status: Awake Pain Control: Satisfactory Nausea/Vomiting: None (Some nausea yesterday. Resolved) Hydration: Adequate Anesthesia-Related Issues: No Anes. Related Issues
--- NOTE | 2022-09-21 09:07 | MHC.CM.PN ---
Female 32 S/P Gastric Sleeve She lives with spouse and kids. She is independent with all functional mobility. She will discharge to home with family assist and transport.
== END 2022-09-21 10:09 | disposition home or self-care (01) | DRG 403 ==
LOC: HO.SSSA 07:05 → HO.S3 11:15
PROVIDERS: Nurse Practitioner; Physician Assistant Surgical; Admitting Provider Surgery; PCP Internal Medicine; Visit Provider Surgery
PROC: 0DB64Z3 Excision of Stomach, Percutaneous Endoscopic Approach, Vertical (ICD-10-PCS; CPT 43845; principal; 2022-09-20 07:30)
DX: E66.01 Morbid (severe) obesity due to excess calories (principal); E55.9 Vitamin D deficiency, unspecified; E78.00 Pure hypercholesterolemia, unspecified; I10 Essential (primary) hypertension; K66.0 Peritoneal adhesions (postprocedural) (postinfection); F41.1 Generalized anxiety disorder; Z68.28 Body mass index [BMI] 28.0-28.9, adult; Z20.822 Contact with and (suspected) exposure to COVID-19; Z79.899 Other long term (current) drug therapy
CPT/HCPCS: 36415; 80048; 81025; 85014; 85018; 85025; 86850; 86900; 86901; 87635; 88307; 88342; C9088; C9145; J0131; J0690; J1100; J1170; J2250; J2405; J2765; J3010

== ENCOUNTER → 2022-09-26 15:17 | Outpatient (BNVA) | payer OTHER, SELFPAY | PROVIDERS: PCP Internal Medicine; Visit Provider Physician Assistant Surgical | DX: E66.3 Overweight (principal); Z98.84 Bariatric surgery status; Z68.26 Body mass index [BMI] 26.0-26.9, adult | CPT/HCPCS: 99212 ==

== ENCOUNTER 2022-09-27 09:50 | Outpatient (REF) | payer OTHER, SELFPAY ==
[2022-09-27 16:14] LABS: CT PCR NOT DETECTED (Not Detect.); NG PCR NOT DETECTED (Not Detect.)
[2022-09-28 14:35] LABS: BV Int Neg Control Negative (Negative); BV Int Pos Control Positive (Positive)
[2022-09-29 05:39] LABS: HPV mRNA E6/E7 rflx Not Detected (Not Detected)
== END 2022-09-27 09:51 | disposition home or self-care (01) ==
LOC: HO.LNP 09:50
PROVIDERS: PCP Internal Medicine; Visit Provider Advanced Practice Midwife
DX: Z01.419 Encounter for gynecological examination (general) (routine) without abnormal findings (principal); E66.9 Obesity, unspecified; N81.89 Other female genital prolapse; Z98.84 Bariatric surgery status; Z79.899 Other long term (current) drug therapy
CPT/HCPCS: 0353U; 87480; 87510; 87624; 87660; 88142

== ENCOUNTER → 2022-10-12 08:44 | Outpatient (BNVA) | payer OTHER, SELFPAY | PROVIDERS: PCP Internal Medicine; Visit Provider Dietitian, Registered | DX: E66.9 Obesity, unspecified (principal); Z98.84 Bariatric surgery status; Z68.25 Body mass index [BMI] 25.0-25.9, adult | CPT/HCPCS: 97803 ==

== ENCOUNTER 2022-11-08 12:26 | Emergency (ER) | payer OTHER, SELFPAY ==
--- NOTE | ~2022-11-08 | US_ITS ---
EXAMINATION: US VENOUS ULTRASOUND WITH DOPPLER LOWER EXTREMITY, LEFT CLINICAL INFORMATION: Pain COMPARISON: None available. TECHNIQUE: Ultrasound of the deep veins is performed from the hip to the calf with compression sonography and color and pulse Doppler assessment. Spectral analysis with color-flow imaging is performed. FINDINGS: There is normal venous compression and respiratory variation and augmented flow. The visualized common femoral vein, superficial femoral vein, profunda femoral vein, popliteal vein, and the trifurcation region shows no evidence of deep venous thrombosis. There is no significant popliteal fossa cyst. Included in the images submitted left inguinal lymph node 1.6 x 0.6 x 0.8 cm, normal thin cortex. No bulky adenopathy present. If the patient's symptoms persist, followup ultrasound in 5 days 7 days might be of value to exclude proximal propagation from a non-visualized calf vein. US/US venous duplex LE IMPRESSION: No DVT demonstrated in the left lower extremity.
[2022-11-08 12:38] VITALS: BP 154/79; PULSE 63; RESP 18; TEMP 36.6; O2SAT 98; BMI 25.0
--- NOTE | 2022-11-08 12:42 | ED.GENADULT ---
HPI - General Adult General Chief complaint: Extremity Injury, Lower Stated complaint: cramp in leg Time Seen by Provider: 11/08/22 15:00 Source: patient and RN notes reviewed Mode of arrival: ambulatory Limitations: no limitations History of Present Illness HPI narrative: 32-year-old female, the past medical history of gastric sleeve, presenting to the emergency department for evaluation of left calf pain and numbness/tingling since today. Patient reports no new trauma or injury. She states that she has lost 75lbs since September since the gastric sleeve. she is not on vitamins at this time. She states that the numbness and tingling started in her left lower extremity and is now extended up into her left arm. She denies any fevers, chills, cough, chest pain, shortness of breath, abdominal pain, nausea, vomiting or diarrhea. No recent trauma or injury. No other complaints or concerns at this time. MD complaint: Left calf pain/numbness Pain Consistency: constant Relieving factors: none Exacerbating factors: none Associated symptoms: denies other symptoms Treatments prior to arrival: none Related Data Previous Rx's Medication Instructions Recorded blood pressure monitor #1 ea 03/17/22 ondansetron HCl 4 mg tablet 4 mg PO Q6H PRN nausea and 06/09/22 vomiting #20 tabs acetaminophen 500 mg/15 mL oral 500 mg (15 mL) PO Q6H PRN fever or 09/13/22 liquid pain #237 mL sucralfate 100 mg/mL oral 10 ml PO BID 30 days #600 mL 09/13/22 suspension pantoprazole 40 mg tablet,delayed 40 mg PO QAM 90 days #90 tabs 10/13/22 release diphenhydramine HCl 25 mg capsule 25 mg PO Q8H PRN itching #14 caps 11/08/22 (Benadryl) Allergies Allergy/AdvReac Type Severity Reaction Status Date / Time No Known Allergies Allergy Verified 11/08/22 12:38 [No Known Allergies*] Review of Systems Review of Systems: Constitutional: No Weight loss, No Fever, No Chills ENT/Mouth: No Ear Pain, No Nasal Congestion, No Sinus Pain, No Hoarseness, No sore throat, No Rhinorrhea, No Swallowing Difficulty Cardiovascular: No Chest Pain, No SOB Respiratory: No Cough, No Sputum, No Wheezing Gastrointestinal: No Nausea, No Vomiting, No Diarrhea, No Constipation, No Abdominal pain Genitourinary: No Dysuria, No Urinary Frequency, No Hematuria, No Urinary Incontinence/retention, No Urgency, No Flank Pain Musculoskeletal: No joint pain, No Myalgias, No Joint Swelling Skin: No Skin Lesions, No rash Neuro: No Weakness, + Numbness, + Paresthesias PMFSH Past Medical History Medical History (Updated 11/08/22 @ 16:52 by ARMINDA Fitzgerald) Adult general medical exam Allergic otitis media of both ears Anxiety Encounter for monitoring of etonogestrel implant Encounter for removal and reinsertion of Nexplanon Gestational hypertension Hypercholesterolemia Hypertension Insomnia Obesity (BMI 30-39.9) Upper respiratory tract infection Vitamin D deficiency Surgical History (Updated 09/27/22 @ 15:58 by Kendra Hayden MD) History of cholecystectomy History of esophagogastroduodenoscopy (EGD) Hx of laparoscopy Right ovarian cyst Social History Social History Household Members: Spouse and Children Housing: Assisted Living Facility Are you a primary hospice care transitions coordinator to a significant other at home: Yes (children) Do you presently have visiting nurse or other home services: No Alcohol intake: never Patient Tobacco Use Status: Never used Tobacco Smoked in Last 30 Days: No e-Cigarette/Vaping Use: Never Used Second Hand Smoke Exposure: No Use of substances other than those prescribed or required for medical reasons: No Advance Directives: No Advance Directives Information Provided: Yes Patient : No service: No Current occupational status: employed Cognitive needs: No Hearing needs: No Vision needs: No Physical Exam ED Vital Signs: Vital Signs - 24 hr 11/08/22 12:38 11/08/22 15:04 Temperature 98 F Pulse Rate 63 60 Respiratory Rate 18 16 Blood Pressure 154/79 H 142/69 H Pulse Oximetry 98 100 Oxygen Delivery Method Room Air BMI result Body Mass Index 25.0 Course Course Course Narrative: RME- 32-year-old female presents for evaluation and tingling sensation in her left lower extremity. Patient reports that the symptoms have been persistent for last 4 days. She is on contraception. Ultrasound of the left lower extremity ordered. Medical Decision Making Medical Decision Making [facility] Narrative: 32 y/o F presenting To the emergency department with complaints of numbness in her left foot as well as left calf pain. Ultrasound of the left calf was negative for DVT. Patient has lost 75 lb gastric sleeve. She was not placed on vitamins after having this done. Patient is nontoxic appearing, afebrile, neurologically intact. Given extensive weight loss with gastric sleeve without vitamin replacement I suspect this is a vitamin deficiency. I advised patient to discuss this with her bariatric surgeon and dietitian. Patient understands and agrees with this plan. Differential Diagnosis Differential Diagnoses: The differential diagnosis associated with the presentation includes DVT, viral syndrome, vitamin-D deficiency Independent Interpretation I performed an independent interpretation of an: Ultrasound Interpretation: EXAMINATION:? US VENOUS ULTRASOUND WITH DOPPLER LOWER EXTREMITY, LEFT CLINICAL INFORMATION:? Pain COMPARISON:? None available. TECHNIQUE: Ultrasound of the deep veins is performed from the hip to the calf with compression sonography and color and pulse Doppler assessment. Spectral analysis with color-flow imaging is performed. FINDINGS: There is normal venous compression and respiratory variation and augmented flow. The visualized common femoral vein, superficial femoral vein, profunda femoral vein, popliteal vein, and the trifurcation region shows no evidence of deep venous thrombosis. ? There is no significant popliteal fossa cyst. Included in the images submitted left inguinal lymph node 1.6 x 0.6 x 0.8 cm, normal thin cortex. No bulky adenopathy present. If the patient's symptoms persist, followup ultrasound in 5 days 7 days might be of value to exclude proximal propagation from a non-visualized calf vein. US/US venous duplex LE LT IMPRESSION: No DVT demonstrated in the left lower extremity. Discharge Plan Discharge Clinical Impression: Pain of left calf Patient Disposition: Home, Self-Care Additional Instructions: Your ultrasound of your left leg was normal and showed no blood clot. Please follow up with your bariatric surgeon/managed security sales consultant as some of your symptoms may be attributed to a vitamin deficiency. If any new or worsening symptoms occur please return for re-evaluation. La ecograf?a de la pierna izquierda fue normal y no mostr? nayla?n co?gulo de [address] un seguimiento con sharma cirujano lauren?trico/dietista, ya que algunos de nikolas s?ntomas pueden atribuirse a radha deficiencia de vitaminas. Si se presentan s?ntomas nuevos o que empeoran, regrese para radha reevaluaci?n. Prescriptions: New diphenhydramine HCl [Benadryl] 25 mg capsule 25 mg PO Q8H PRN (Reason: itching) Qty: 14 0RF No Action (DME) blood pressure monitor Kit See Rx Instructions .Route Qty: 1 0RF Rx Instructions: As directed sucralfate 100 mg/mL suspension 10 ml PO BID 30 Days Qty: 600 2RF acetaminophen 500 mg/15 mL liquid 500 mg PO Q6H PRN (Reason: fever or pain) Qty: 237 2RF pantoprazole 40 mg tablet,delayed release (DR/EC) 40 mg PO QAM 90 Days Qty: 90 0RF ondansetron HCl 4 mg tablet 4 mg PO Q6H PRN (Reason: nausea and vomiting) Qty: 20 0RF Interventions: ED Discharge Assessment Last Done: 11/08/22 16:57 Discharge Date/Time: 11/08/22 16:58
[2022-11-08 15:04] VITALS: BP 142/69; PULSE 60; RESP 16; O2SAT 100
== END 2022-11-08 16:58 | disposition home or self-care (01) ==
PROVIDERS: Emergency Provider Emergency Medicine; PCP Internal Medicine
DX: M79.662 Pain in left lower leg (principal); I10 Essential (primary) hypertension; E78.00 Pure hypercholesterolemia, unspecified; Z98.84 Bariatric surgery status
CPT/HCPCS: 93971; 99284

== ENCOUNTER 2022-11-14 08:44 | Outpatient (REF) | payer OTHER, SELFPAY ==
--- NOTE | 2022-11-14 08:48 | ECG_ITS ---
Test Reason : E66.9 Blood Pressure : / mmHG Vent. Rate : 059 BPM Atrial Rate : 059 BPM P-R Int : 174 ms QRS Dur : 092 ms QT Int : 400 ms P-R-T Axes : 008 025 015 degrees QTc Int : 396 ms Sinus bradycardia Otherwise normal ECG When compared with ECG of 20-JUN-2022 11:43, No significant change was found Referred By: Asher Parker Electronically Signed By:DIMPLE CORONA MD
[2022-11-14 09:05] LABS: MANUAL DIFF FLAG NO
[2022-11-14 09:30] LABS: Basophils Absolute Auto 0.1 X10*3/uL (0.0-0.2); Basophils Percent Auto 0.8 % (0-2); Eosinophils Absolute Auto 0.1 X10*3/uL (0.0-0.4); Eosinophils Percent Auto 1.1 % (0-4); Hematocrit 38.1 % (37.0-47.0); Hemoglobin 12.4 g/dl (12.0-16.0); Imm Gran Abs Auto 0.01 X10*3/uL (0.00-0.03); Imm Gran Pct Auto 0.2 % (0.0-0.4); Lymphocytes Absolute Auto 1.6 X10*3/uL (1.2-4.9); Lymphocytes Percent Auto 25.1 % (20-40); Mean Corpuscular HGB Conc 32.5 g/dl (31.0-35.0); Mean Corpuscular Hemoglobin 30.5 pg (27.0-33.0); Mean Corpuscular Volume 93.8 fL (80.0-98.0); Monocytes Absolute Auto 0.4 X10*3/uL (0.1-1.2); Monocytes Percent Auto 5.6 % (2-11); Neutrophils Absolute Auto 4.3 x10*3/uL (2.0-8.3); Neutrophils Percent Auto 67.2 % (45-73); Platelet Count 332 X10*3/uL (160-400); Red Blood Count 4.06 X10*6/uL (4.20-5.50); Red Cell Distribution Width 12.4 % (11.0-16.0); White Blood Count 6.4 X10*3/uL (4.8-10.8)
[2022-11-14 09:34] LABS: INTERNATIONAL NORM RATIO 1.1 (0.9-1.1); Prothrombin Time 13.1 SEC (10.0-13.1)
[2022-11-14 09:36] LABS: Partial Thromboplastin Time 35.1 SEC (26.0-36.4)
[2022-11-14 09:57] LABS: Estimated Average Glucose 77 mg/dL; Hemoglobin A1c % 4.3 %
[2022-11-14 10:14] LABS: Alanine Aminotransferase 9 U/L (0-31); Albumin Level 4.2 g/dL (3.5-5.0); Alkaline Phosphatase 76 U/L (39-117); Anion Gap 13 (12-20); Aspartate Amino Transferase 11 U/L (5-31); Bilirubin Total 0.7 mg/dL (0.0-1.0); Blood Urea Nitrogen 10 mg/dL (9-16); C Reactive Protein 0.54 mg/dL (< or = 0.50); Calcium 9.7 mg/dL (8.4-10.2); Carbon Dioxide 26 mmol/L (22-29); Chloride 105 mmol/L (96-108); Cholesterol 170 mg/dL; Estimated Glomerular Filt Rate > 60; Glucose Random 83 mg/dL (60-115); HDL Cholesterol 37 mg/dL; Iron 59 mcg/dL (30-160); LDL Cholesterol Calculated 121 mg/dl; Percent Iron Saturation 23 % (15-50); Potassium 3.6 mmol/L (3.3-5.1); Sodium 140 mmol/L (135-145); Total Iron Binding Capacity 258 mcg/dL (228-428); Total Protein 7.8 g/dL (6.5-8.0); Triglycerides 63 mg/dL; Unsaturated Iron Binding 199 ug/dL
[2022-11-14 10:40] LABS: Ferritin 78 ng/mL (10-122)
[2022-11-14 10:42] LABS: TSH reflex Free T4 0.75 uIU/mL (0.32-4.0)
[2022-11-14 10:49] LABS: Vitamin B12 452 pg/mL (200-900)
[2022-11-15 13:24] LABS: Calcium (PTHI) 10.4 mg/dL (8.6-10.2); PTHI 23 pg/mL (16-77)
[2022-11-18 00:18] LABS: Zinc 79 mcg/dL (60-130)
[2022-11-20 01:37] LABS: Vitamin A 35 mcg/dL (38-98)
[2022-11-20 06:09] LABS: Vitamin B1 11 nmol/L (8-30)
== END 2022-11-14 08:45 | disposition home or self-care (01) ==
LOC: HO.LAB 08:44
PROVIDERS: Surgery; PCP Nurse Practitioner Family; Visit Provider Nurse Practitioner Family
DX: E66.9 Obesity, unspecified (principal); A04.8 Other specified bacterial intestinal infections; E55.9 Vitamin D deficiency, unspecified; E66.3 Overweight; E78.00 Pure hypercholesterolemia, unspecified; F41.1 Generalized anxiety disorder; I10 Essential (primary) hypertension
CPT/HCPCS: 36415; 80053; 80061; 82306; 82607; 82728; 83036; 83540; 83970; 84425; 84443; 84590; 84630; 85025; 85610; 85730; 86140; 93005

== ENCOUNTER → 2022-11-15 10:50 | Outpatient (BNVA) | payer OTHER, SELFPAY | PROVIDERS: PCP Nurse Practitioner Family; Visit Provider Dietitian, Registered | DX: Z90.3 Acquired absence of stomach [part of] (principal) | CPT/HCPCS: 97803 ==

== ENCOUNTER → 2022-12-08 09:50 | Outpatient (BNVA) | payer OTHER, SELFPAY | PROVIDERS: PCP Nurse Practitioner Family; Visit Provider Dietitian, Registered | DX: E66.9 Obesity, unspecified (principal); Z90.3 Acquired absence of stomach [part of]; Z68.23 Body mass index [BMI] 23.0-23.9, adult | CPT/HCPCS: 97803 ==

== ENCOUNTER 2023-08-08 13:15 | Outpatient (AMB) | payer OTHER, SELFPAY ==
[2023-08-08 13:27] VITALS: BP 130/70; PULSE 65; O2SAT 98; BMI 24.0
--- NOTE | 2023-08-08 13:27 | A.OFFPC_ITS ---
Vital Signs 3 08/08/23 13:27 Height 6 ft Weight 177 lb BMI 24.0 BP 130/70 Blood Pressure Location Lt brachial Position Sitting Pulse 65 Pulse Source Pulse Oximeter Pulse Oximetry (%) 98 Oxygen Delivery Method Room Air Intake Visit Reasons: Left breast pain/lump, Right ear pain Intake Note: She has a bump on her nipple and when she squeezes it, she gets pus out of it. She also thought she may have felt a lump as well. She is also complaining of right ear pain, states a liquor bottle did fall on her head yesterday and she is not sure if the discomfort in the ear is from the hit on the head or allergies. Allergies No Known Allergies [No Known Allergies*] Allergy (Verified 08/08/23 13:28) Tobacco use date assessed: 08/08/23 Dental Screening Dental Screen Date: 08/08/23 Did you have a dental visit in the last 12 months?: Yes Did you have a dental problem in the last 6 months where you did not have access to dental care?: No Was dental information given to patient?: Patient has dentist HPI Left breast pain/lump 2 HPI0 Details 33-year-old female with a history of lap aroscopic sleeve gastrectomy hypertension hypercholesterolemia generalized anxiety disorder coming in for an acute problem. L breast discharge 1 year but has pain 4 days ago no n no vomiting, dizzy PFSH Medical History (Updated 08/08/23 @ 14:20 by Kendra Hayden MD) Encounter for removal and reinsertion of Nexplanon Anxiety Encounter for monitoring of etonogestrel implant Adult general medical exam Upper respiratory tract infection Gestational hypertension Hypercholesterolemia Insomnia Vitamin D deficiency Obesity (BMI 30-39.9) Hypertension Allergic otitis media of both ears Surgical History (Updated 09/27/22 @ 15:58 by Kendra Hayden MD) Hx of laparoscopy History of esophagogastroduodenoscopy (EGD) History of cholecystectomy Right ovarian cyst Social History Household Members: Spouse and Children Housing: Assisted Living Facility Are you a primary customer care coordinator to a significant other at home: Yes (children) Do you presently have visiting nurse or other home services: No Alcohol intake: never Patient Tobacco Use Status: Never used Tobacco e-Cigarette/Vaping Use: Never Used Second Hand Smoke Exposure: No service: No Current occupational status: employed Cognitive needs: No Hearing needs: No Vision needs: No Female Reproductive History Menstrual Age of Menarche: 12 Questionnaire PHQ-9 Over the last 2 weeks, how often have you been bothered by any of the following problems? 1. Little interest or pleasure in doing things: not at all 2. Feeling down, depressed, or hopeless: not at all 3. Trouble falling or staying asleep, or sleeping too much: not at all 4. Feeling tired or having little energy: not at all 5. Poor appetite or overeating: not at all 6. Feeling bad about yourself - or that you are a failure or have let yourself or your family down: not at all 7. Trouble concentrating on things, such as reading the newspaper or watching television: not at all 8. Moving or speaking so slowly that other people could have noticed. Or the opposite - being so fidgety or restless that you have been moving around a lot more than usual: not at all 9. Thoughts that you would be better off or of hurting yourself in some way: not at all Total score: 0 Depression Screening Interpretation: Negative Depression Screening Done: Yes Source: Developed by Drs. Carlos Torres, Felicia Barron, Rowdy Mora and colleagues, with an educational palak from [employer]. Thrive Questionnaire Date Thrive assessed: 08/08/23 I am a: Patient What is your living situation today?: I have a steady place to live Within the past 12 months, did the food you bought not last and you didn't have the money to get more?: Never true Within the past 12 months, did you worry whether your food would run out before you got money to buy more?: Never true Do you have trouble paying for medicines?: No Do you have trouble getting transportation to medical appointments?: No Do you have trouble paying your heating and electricity bill?: No Do you have trouble taking care of your child, family member or friend?: No Do you have trouble with day-to-day activities such as bathing, preparing meals, shopping, managing finances, etc.?: No Are you currently unemployed and looking for a job?: No Are you interested in more education?: No Currently or been in a relationship where the following occur: no concerns reported THRIVE Score: 0 AUDIT C Alcohol Use Questionnaire (AUDIT-C) 1. How often do you have a drink containing alcohol?: Never Total Score: 0 Score Reviewed/Action Taken: No DOMINIQUE-7 AMB Questionnaire DOMINIQUE-7 Date DOMINIQUE - 7 assessed: 08/08/23 Feeling nervous, anxious, or on edge: 1 = Several days Not being able to stop or control worryin = Several days Worrying too much about different things: 1 = Several days Trouble relaxin = Not at all Being so restless that it is hard to sit still: 0 = Not at all Becoming easily annoyed or irritable: 0 = Not at all Feeling afraid as if something awful might happen: 0 = Not at all Total DOMINIQUE-7 score (0-4 normal; 5-9 mild; 10-14 moderate; 15-21 severe): 3 Source: Developed by Drs. Carlos Torres, Felicia Barron, Rowdy Mora and colleagues, with an educational palak from [employer]. DOMINIQUE-7 Assessment Billing DOMINIQUE-7 Assessment Tool: DOMINIQUE-7 Assessment 90083 Physical exam (Primary Care) Vital Signs: Last Vital Signs Pulse 65 08/08/23 13:27 BP 130/70 08/08/23 13:27 Pulse Ox 98 08/08/23 13:27 Oxygen Delivery Method Room Air 08/08/23 13:27 BMI result Body Mass Index 24.0 Tobacco/Smoking Status: Tobacco use Status Tobacco use date assessed 08/08/23 08/08/23 13:31 Patient Tobacco Use Status Never used Tobacco 08/08/23 13:31 e-Cigarette/Vaping Use Never Used 08/08/23 13:31 PHQ-9: PHQ-9 Score PHQ-9: Total score 0 08/08/23 14:01 Depression Screening Interpretation: Negative Thrive Assessment: Date of Thrive Assessment Date Thrive assessed 08/08/23 08/08/23 13:32 Currently or been in a relationship where the following occur: no concerns reported Chest Chest/axillae images: 2 1. 1 cm mass 10 oclocl and retroareaolar area 2. retroareaolar but no discharge noted Assessment and Plan Assessment & Plan (1) Right ear pain: Code(s): H92.01 - Otalgia, right ear (2) Left breast mass: Comment: August 21 241 cm 10:00 o'clock and retroareolar Code(s): N63.20 - Unspecified lump in the left breast, unspecified quadrant Plan: Will request for mammogram as well as ultrasound Orders: Orders 2 MM tomosynthesis diagnostic BI Today N63.20 - Unspecified lump in the left breast, unspecified quadrant US breast LT limited Today N63.20 - Unspecified lump in the left breast, unspecified quadrant Coding Level of Care Code Est Pt Level 3 (32723) Diagnoses Right ear pain H92.01 Left breast mass N63.20 Additional Codes DOMINIQUE-7 Assessment Billing - DOMINIQUE-7 Assessment Tool: DOMINIQUE-7 Assessment 10851 ([id number]) PHQ-9 - 93677 - PHQ-9 Billing: ([id number])
== END 2023-08-08 14:24 | disposition home or self-care (01) ==
PROVIDERS: PCP Nurse Practitioner Family; Visit Provider Internal Medicine
DX: H92.01 Otalgia, right ear (principal); N63.41 Unspecified lump in right breast, subareolar
CPT/HCPCS: 99213

== ENCOUNTER 2023-09-06 14:22 | Outpatient (REF) | payer OTHER, SELFPAY ==
--- NOTE | ~2023-09-06 | US_ITS ---
EXAMINATION: MM DIAGNOSTIC DIGITAL BREAST TOMOSYNTHESIS, BILATERAL US BREAST LIMITED, BILATERAL MAMMOGRAPHY: CLINICAL INFORMATION: Palpable abnormality left breast 11:00; right breast palpable abnormality 12:00 axis noted by technologist while positioning the patient for mammographic views. 33-year-old female. COMPARISON: Mammography: No prior. Baseline exam. TECHNIQUE: Digital breast tomosynthesis is performed in both the craniocaudal and mediolateral oblique views along with computer-aided detection (CAD). Synthesized 2D images are generated from the tomosynthesis. FINDINGS: The breasts are heterogeneously dense, which may obscure small masses (ACR BI-RADS breast composition Category c). Within the left breast at the 11:00 axis, posterior one third, there is a lobular mass measuring approximately 1.4 x 1.9 x 1.8 cm on mammography. This is likely responsible for the palpable abnormality within the left breast. This will be evaluated by ultrasound. Otherwise, no additional masses, suspicious calcifications, or regions of architectural distortion are present in either breast. No mammographic abnormality is seen in the superior right breast. ULTRASOUND: CLINICAL INFORMATION: As above. COMPARISON: None contributory. TECHNIQUE: Targeted sonographic evaluation was performed using a high frequency linear transducer. Right breast upper outer quadrant was interrogated. Left breast upper inner quadrant was interrogated. These regions include the foci of palpable concern. Selected archived documentation. FINDINGS: RIGHT BREAST: There is heterogeneously dense breast tissue present. No suspicious mass is seen. There is no pathologic acoustic shadowing. There is no ultrasonographic abnormality to correlate with the focus of palpable concern in the superior right breast as felt by the technologist. LEFT BREAST: There is heterogeneously dense breast tissue present. There is a lobular hypoechoic mass the 11:00 axis, 7 cm from the nipple, with good through transmission, a small amount of peripheral but no internal color Doppler flow, uniformly hypoechoic, with no surrounding fat changes, measuring 1.8 x 1.1 x 1.4 cm. 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 Given the size, ultrasound-guided biopsy is recommended for confirmation. US/US breast BI limited mamm only IMPRESSION: 1. There are no findings suspicious for malignancy in the right breast. Palpable abnormality superior right breast was felt by the technologist is most attributable to a ridge of dense fibroglandular tissue. 2. 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 Findings and recommendations were discussed with the patient with the aid of an applications architect. OVERALL ASSESSMENT: Mammography: BI-RADS 4 - Suspicious finding Ultrasound: BI-RADS 4 - Suspicious finding RECOMMENDATION: Biopsy recommended
== END 2023-09-06 14:23 | disposition home or self-care (01) ==
LOC: HO.MAMMO 14:22
PROVIDERS: PCP Internal Medicine; Visit Provider Internal Medicine
DX: N63.22 Unspecified lump in the left breast, upper inner quadrant (principal)
CPT/HCPCS: 76642; 77062; 77066

== ENCOUNTER → 2023-09-06 14:30 | Outpatient (BNV) | payer OTHER, SELFPAY | PROVIDERS: PCP Internal Medicine; Visit Provider Radiology Diagnostic Radiology | DX: R92.8 Other abnormal and inconclusive findings on diagnostic imaging of breast (principal) | CPT/HCPCS: 76642; 77062; 77066 ==

== ENCOUNTER 2023-09-12 08:03 | Outpatient (AMB) | payer OTHER, SELFPAY ==
--- NOTE | 2023-09-12 08:06 | A.OFFVIS_ITS ---
Intake Vital Signs 09/12/23 08:23 Height 6 ft Weight 178 lb BMI 24.1 BP 133/60 Blood Pressure Location Rt brachial Position Sitting Pulse 60 Intake Visit Reasons: US guided Bx Lt breast 11 oclock mass Intake Note: This patient presents for an breast consult for Ultrasound guided Bx Lt breast 11 o'clock mass. Pt c/o; reports mass left breast, reports has a white dot on the left nipple and when on her menstrual cycle she gets discharge, reports left nipple discharge. Organic Chemistry Professor Required: Yes Organic Chemistry Professor Language: Commodities Clerk Name: OumouISABELMini Information Interpreted: non-clinical & clinical Outside Physical Damage Appraiser: Outside Physical Damage Appraiser Present (Violet) Accompanied by: Self / Same As Patient Allergies No Known Allergies [No Known Allergies*] Allergy (Verified 09/12/23 08:26) Medication List - Last Reconciled 09/12/23 by Leonard Johnson MD acetaminophen 500 mg (15 mL) PO Q6H PRN blood pressure monitor As directed diphenhydramine HCl (Benadryl) 25 mg PO Q8H PRN ondansetron HCl 4 mg PO Q6H PRN pantoprazole 40 mg PO QAM 90 days sucralfate 10 mL PO BID 30 days vitamin A palmitate 3,000 mcg PO DAILY 90 days Is last menstrual period known: Yes Last menstrual period: 09/10/23 HPI US guided Bx Lt breast 11 oclock mass HPI Details 33-year-old female referred for a left b reast mass. She says she feels a small lump on the left breast and has started noticing this about 5 months ago. She describes having some milky discharge from the left breast for about 4 years now since her last Her menarche was the age of 11. Her 1st was at age of 22. She has had 3 pregnancies. She denies a strong family history of breast cancer. She had a mammogram and an ultrasound done for this left breast mass last week a small 1.8 cm mass was noted on the left breast at the 11 o'clock position. 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 However, an ultrasound biopsy was recommended by the radiologist to confirm this. [facility] Medical History Encounter for removal and reinsertion of Nexplanon Anxiety Encounter for monitoring of etonogestrel implant Adult general medical exam Upper respiratory tract infection Gestational hypertension Hypercholesterolemia Insomnia Vitamin D deficiency Obesity (BMI 30-39.9) Hypertension Allergic otitis media of both ears Surgical History Hx of laparoscopy History of esophagogastroduodenoscopy (EGD) History of cholecystectomy Right ovarian cyst Social History Household Members: Spouse and Children Housing: Assisted Living Facility Are you a primary careers adviser to a significant other at home: Yes (children) Do you presently have visiting nurse or other home services: No Alcohol intake: never Patient Tobacco Use Status: Never used Tobacco e-Cigarette/Vaping Use: Never Used Second Hand Smoke Exposure: No service: No Current occupational status: employed Cognitive needs: No Hearing needs: No Vision needs: No Female Reproductive History Menstrual Age of Menarche: 12 Date of last menstrual period: 09/10/23 Total pregnancies: 2 Full term: 2 Review of Systems Const Denies chills and Denies fever(s) Card Denies chest pain, Denies dyspnea and Denies dyspnea on exertion Resp Denies cough, Denies dyspnea and Denies dyspnea on exertion GI Denies hematochezia and Denies change in bowel habits Denies hematuria Musc Denies back pain and Denies limited range of motion Neuro Denies focal weakness and Denies convulsions Psych Denies depression and Denies mood swings Physical Exam Vital Signs: Last Vital Signs Pulse 60 09/12/23 08:23 BP 133/60 09/12/23 08:23 BMI result Body Mass Index 24.1 Const General: comfortable and no acute distress Orientation/consciousness: patient oriented x3 Neck Neck: Yes no lymphadenopathy Chest Other: I am unable to feel the lump at this time. This there were no palpable masses on both breasts. There is no axillary lymphadenopathy. There has no discharge Resp Auscultation: clear to auscultation bilaterally Cardio Rhythm: regular rhythm GI Palpation (GI): Soft to palpation, nontender and no guarding Neuro General: patient oriented x3 Assessment & Plan Assessment & Plan (1) Left breast mass: Comment: August 21 241 cm 10:00 o'clock and retroareolar Code(s): N63.20 - Unspecified lump in the left breast, unspecified quadrant Plan: She has a left breast mass seen on ultrasound and mammogram appears to be a fibroadenoma. A breast biopsy with ultrasound has been recommended by the radiologist. I explained to her the technique of this procedure I will see her again next week in the office to discuss the path report. Orders: Orders US breast ndl core biopsy LT 09/11/23 N63.20 - Unspecified lump in the left breast, unspecified quadrant Coding Level of Care Code New Pt Level 3 (67869) Diagnoses Left breast mass N63.20
[2023-09-12 08:23] VITALS: BP 133/60; PULSE 60; BMI 24.1
== END 2023-09-12 08:39 | disposition home or self-care (01) ==
PROVIDERS: PCP Internal Medicine; Visit Provider Surgery
DX: N63.20 Unspecified lump in the left breast, unspecified quadrant (principal)
CPT/HCPCS: 99203

== ENCOUNTER 2023-09-12 08:47 | Outpatient (REF) | payer OTHER, SELFPAY ==
--- NOTE | ~2023-09-12 | US_ITS ---
PROCEDURE: US GUIDED BREAST BIOPSY, LEFT CLINICAL INFORMATION: Lobular mass left breast 11:00 axis, probable fibroadenoma, recommended for biopsy. COMPARISON: Diagnostic left breast ultrasound 09/06/2023. PROCEDURAL DETAILS: The details of the procedure, as well as the risks, benefits, and alternatives to the procedure were explained to the patient in detail with the aid of a packing floor worker and all of her questions were answered, after which written informed consent was obtained. Site and side were confirmed. Prior to the procedure, sonography revealed a hypoechoic lobular mass in the left breast 11:00 axis, 7 cm from the nipple, measuring 1.8 x 1.1 x 1.4 cm. A time-out was performed, the lesion intended for biopsy was targeted, and the skin of the overlying left breast was then marked, prepped and draped in the usual sterile fashion. Using sonographic guidance, sterile technique, and 1% lidocaine without epinephrine for local anesthesia, multiple core biopsies were obtained through the targeted area with a 14G spring loaded [employer] core biopsy device. There was real-time confirmation of appropriate needle passage. Sampling was documented. At the completion of tissue sampling, a single butterfly-shaped metallic clip was deposited at the biopsy site. There was no evidence of immediate complication. SPECIMEN: 3 well formed core samples were obtained DIGITAL POST-PROCEDURE MAMMOGRAPHY: Breast density: The tissue is heterogeneously dense which may obscure small masses. BI-RADS version 5, category C. There are no new mammographic findings demonstrated. The postprocedure 2-view direct digital mammogram reveals satisfactory and accurate positioning of the biopsy clip. It is positioned in the periphery of the mass. No hematoma present. The patient tolerated the procedure well and, after assuring adequate hemostasis, was discharged in good condition after reviewing postbiopsy breast care instructions. Final pathology results are pending. US/US breast ndl core biopsy LT IMPRESSION: 1. No immediate complication from ultrasound-guided percutaneous biopsy left breast mass 11:00 axis as detailed. 2. Ultrasound was used to localize and guide marker clip placement. 3. The 2-view direct digital postprocedure mammogram reveals satisfactory and accurate positioning of the biopsy clip. 4. Final pathology results are pending. A separate report with final recommendations will be issued once these results are made available.
[2023-09-12] MEDS: Lidocaine HCl 1 % 20 ML VIAL 6 ML SUBCUT (10:03)
[2023-09-12] MEDS: Sodium Bicarbonate 8.4% 50 MEQ/50 ML VIAL SUBCUT (10:04)
== END 2023-09-12 08:48 | disposition home or self-care (01) ==
LOC: HO.MAMMO 08:47
PROVIDERS: PCP Internal Medicine; Visit Provider Surgery
DX: N63.22 Unspecified lump in the left breast, upper inner quadrant (principal)
CPT/HCPCS: 19083; 77061; 77065; 88305; 99202; A4648

== ENCOUNTER → 2023-09-12 10:00 | Outpatient (BNV) | payer OTHER, SELFPAY | PROVIDERS: PCP Internal Medicine; Visit Provider Radiology Diagnostic Radiology | DX: N63.22 Unspecified lump in the left breast, upper inner quadrant (principal) | CPT/HCPCS: 19083; 77065 ==

== ENCOUNTER 2023-09-19 12:46 | Outpatient (AMB) | payer OTHER, SELFPAY ==
--- NOTE | 2023-09-19 12:50 | A.OFFVIS_ITS ---
Intake Vital Signs 09/19/23 12:54 Height 6 ft Weight 178 lb BMI 24.1 BP 133/60 Blood Pressure Location Rt brachial Position Sitting Pulse 60 Intake Visit Reasons: breast Bx results, Lt breast mass Intake Note: This patient presents for a follow-up breast assessment for Bx results, Lt breast mass. Pt c/o; reports no complaints. Internet Sales Director Required: Yes Internet Sales Director Language: Ethiopian Accompanied by: Self / Same As Patient Allergies No Known Allergies [No Known Allergies*] Allergy (Verified 09/19/23 12:54) Medication List - Last Reconciled 09/19/23 by Leonard Johnson MD acetaminophen 500 mg (15 mL) PO Q6H PRN blood pressure monitor As directed diphenhydramine HCl (Benadryl) 25 mg PO Q8H PRN ondansetron HCl 4 mg PO Q6H PRN pantoprazole 40 mg PO QAM 90 days sucralfate 10 mL PO BID 30 days vitamin A palmitate 3,000 mcg PO DAILY 90 days HPI breast Bx results, Lt breast mass HPI Details I had seen her last week for a left breast mass and she had undergone core needle biopsy for this. She is here to discuss the path report She says she feels well denies any complaints. She denies any significant bruising or pain. [facility] Medical History Encounter for removal and reinsertion of Nexplanon Anxiety Encounter for monitoring of etonogestrel implant Adult general medical exam Upper respiratory tract infection Gestational hypertension Hypercholesterolemia Insomnia Vitamin D deficiency Obesity (BMI 30-39.9) Hypertension Allergic otitis media of both ears Surgical History Hx of laparoscopy History of esophagogastroduodenoscopy (EGD) History of cholecystectomy Right ovarian cyst Social History Household Members: Spouse and Children Housing: Assisted Living Facility Are you a primary intensive care medicine specialist to a significant other at home: Yes (children) Do you presently have visiting nurse or other home services: No Alcohol intake: never Patient Tobacco Use Status: Never used Tobacco e-Cigarette/Vaping Use: Never Used Second Hand Smoke Exposure: No service: No Current occupational status: employed Cognitive needs: No Hearing needs: No Vision needs: No Female Reproductive History Menstrual Age of Menarche: 12 Review of Systems Const Denies chills and Denies fever(s) Card Denies chest pain, Denies dyspnea and Denies dyspnea on exertion Resp Denies cough, Denies dyspnea and Denies dyspnea on exertion GI Denies hematochezia and Denies change in bowel habits Denies hematuria Musc Denies back pain and Denies limited range of motion Neuro Denies focal weakness and Denies convulsions Psych Denies depression and Denies mood swings Physical Exam Vital Signs: Last Vital Signs Pulse 60 09/19/23 12:54 BP 133/60 09/19/23 12:54 BMI result Body Mass Index 24.1 Const General: comfortable and no acute distress Chest Other: No significant hematoma biopsy site Resp Effort & Inspection: normal respiratory effort Assessment & Plan Assessment & Plan (1) Left breast mass: Comment: August 21 241 cm 10:00 o'clock and retroareolar 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 She is doing well. Her path report shows fibroadenoma. There has no evidence of any malignancy. I explained to her the benign nature of this pathology She can follow up on a p.r.n. basis. Coding Level of Care Code Est Pt Level 2 (00644) Diagnoses Left breast mass N63.20
[2023-09-19 12:54] VITALS: BP 133/60; PULSE 60; BMI 24.1
== END 2023-09-19 13:05 | disposition home or self-care (01) ==
PROVIDERS: PCP Internal Medicine; Visit Provider Surgery
DX: N63.20 Unspecified lump in the left breast, unspecified quadrant (principal)
CPT/HCPCS: 99212

== ENCOUNTER → 2023-09-19 12:46 | Outpatient (BNVA) | payer OTHER, SELFPAY | PROVIDERS: PCP Internal Medicine; Visit Provider Surgery | DX: N63.20 Unspecified lump in the left breast, unspecified quadrant (principal) | CPT/HCPCS: 99212 ==

== ENCOUNTER 2023-10-03 14:18 | Outpatient (REF) | payer OTHER, SELFPAY ==
[2023-10-04 03:38] LABS: CT PCR NOT DETECTED (Not Detect.); NG PCR NOT DETECTED (Not Detect.)
[2023-10-04 13:16] LABS: BV Int Neg Control Negative (Negative); BV Int Pos Control Positive (Positive)
== END 2023-10-03 14:19 | disposition home or self-care (01) ==
LOC: HO.LNP 14:18
PROVIDERS: Visit Provider Advanced Practice Midwife
DX: N81.89 Other female genital prolapse (principal); Z20.2 Contact with and (suspected) exposure to infections with a predominantly sexual mode of transmission; Z98.84 Bariatric surgery status; Z97.5 Presence of (intrauterine) contraceptive device
CPT/HCPCS: 0353U; 87480; 87510; 87660; 99395

== ENCOUNTER 2023-10-03 14:18 | Outpatient (AMB) | payer OTHER, SELFPAY ==
[2023-10-03 15:01] VITALS: BMI 35.2
--- NOTE | 2023-10-03 15:01 | A.OFFVIS_ITS ---
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 Apprentice Required: No Information Interpreted: non-clinical & clinical Executive Account Manager: Executive Account Manager Present (Debbieyn) Allergies No Known Allergies [No Known Allergies*] Allergy (Verified 10/03/23 15:03) Medication List - Last Reconciled 10/03/23 by Marie Lozano CNM blood pressure monitor As directed etonogestrel (Nexplanon) subdermal Is last menstrual period known: Yes Last menstrual period: 09/25/23 Post menopausal: No HPI HPI PET CARE ASSISTANT annual exam: Details: 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 She is very happy with the weight loss. She has the Nexplanon it is her 2nd 1 per research in the chart we inserted this 07/05/2022 when we removed her 1st 1. She does get her regular periods she is happy the Nexplanon. She did have a small mass in her breast noted, and she told her doctor who sent her to Dr. Mann and she had a mammogram and they put a little marker in it, She said there was some discussion about whether not because of her weight loss she could feel it more than it had been before she is to just keep an eye on and if it bothers her she can seek care with them to discuss removal. [facility] Medical History Encounter for removal and reinsertion of Nexplanon Anxiety Encounter for monitoring of etonogestrel implant Adult general medical exam Upper respiratory tract infection Gestational hypertension Hypercholesterolemia Insomnia Vitamin D deficiency Obesity (BMI 30-39.9) Hypertension Allergic otitis media of both ears Surgical History Hx of laparoscopy History of esophagogastroduodenoscopy (EGD) History of cholecystectomy Right ovarian cyst Social History Household Members: Spouse and Children Housing: Assisted Living Facility Are you a primary farm or ranch animal caretaker to a significant other at home: Yes (children) Do you presently have visiting nurse or other home services: No Alcohol intake: never Patient Tobacco Use Status: Never used Tobacco e-Cigarette/Vaping Use: Never Used Second Hand Smoke Exposure: No service: No Current occupational status: employed Cognitive needs: No Hearing needs: No Vision needs: No Female Reproductive History Menstrual Age of Menarche: 12 Duration of menses: 6-7 days Date of last menstrual period: 09/25/23 control method: implanted Total pregnancies: 2 Full term: 2 Number of Living Children: 2 Date of last pap smear: 09/27/22 (negative) Physical Exam Vital Signs: BMI result Body Mass Index 35.2 Const Other: Patient has lost about 100 lb since her bariatric surgery and she is doing very well and looks very good. Nexplanon is in place in left arm. General: healthy appearing, comfortable, no acute distress, well developed and alert Nutritional Appearance: average body habitus Orientation/consciousness: patient oriented x3 Limitations: no limitations HEENT Head: Yes normocephalic Neck Neck: Yes normal visual inspection Chest Chest palpation & inspection: normal inspection of the chest Breast/axilla inspection: normal inspection of the breasts and normal inspection of the axillae Breast/axilla palpation: normal palpation of the breasts and normal palpation of the axillae Resp Effort & Inspection: normal respiratory effort GI Inspection: Yes normal to inspection, No Abdominal wall edema and No distended Palpation (GI): Soft to palpation and nontender General: Yes bladder normal to palpation External Female Exam: normal external appearance and normal appearance of the urethra Speculum Exam - Vagina: normal appearance of the vagina, normal palpation and normal vaginal discharge Speculum Exam - Cervix: normal appearance of the cervix, normal palpation and nontender Bimanual exam- vagina & uterus: normal bimanual exam, normal palpation, uterine size normal, bladder normal to palpation, consistency normal, normal palpation, uterine mobility normal, uterine shape normal, No Cervical tenderness present, non-tender and no cervical motion tenderness Bimanual Exam- Adnexa, other: normal adnexae, no masses, normal and No adnexal tenderness Neuro General: patient oriented x3 Results Reviewed Results Reviewed: Name: Sam Saab Age/Sex: 32/F Attending: Marie Lozano CNM : 1990 Submitted by: Marie Lozano CNM Copies to: Kendra Hayden MD MR #: [id number] Status: DEP REF Collected: 09/27/22 Location: [facility] Received: 09/27/22 Interpretation Satisfactory for evaluation. No endocervical cells seen. Negative for intraepithelial lesion or malignancy. Mild inflammation. HPV mRNA E6/E7: NOT DETECTED This assay detects E6/E7 viral messenger RNA (mRNA) from 14 high-risk HPV types (16, 18, 31, 33, 35, 39, 45, 51, 52, 56, 58, 59, 66, 68) HPV testing performed by [facility], [place], [place]. See reference laboratory portion of the EMR for entire report. Clinical Information LMP: 09/27/2022 Previous PAP test: 03/22/16, WNL Material Received ThinPrep-Cervical Copies To Marie Lozano CNM [address] [place] [address] Dr. [address] [place] [address] Kendra Hayden MD [address] [place] [address] Dr. [address] [place] [address] Electronically Signed By: Allyson Ramirez 10/07/22 1416 The Pap Test is a screening procedure with the inherent possibility of both fa lse negative and false positive results. Results should be interpreted in the context of historic and current clinical findings. Reliability of the Pap Test is enhanced by performing the test on a regular repetitive basis. 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 Code(s): N81.89 - Other female genital prolapse Category: Medical (3) Cervical cancer screening: Comment: Last Pap found in system 03/21/2016= neg; Pap done 09/27/2022 w.ith start of menses= neg w neg Hpv Code(s): Z12.4 - Encounter for screening for malignant neoplasm of cervix Category: Medical (4) Well woman exam with routine gynecological exam: Code(s): Z01.419 - Encounter for gynecological examination (general) (routine) without abnormal findings Category: Medical (5) S/P laparoscopic sleeve gastrectomy: Comment: Laparoscopic sleeve gastrectomy and gastropexy with lysis of adhesions and upper endoscopy September 2022 Code(s): Z98.84 - Bariatric surgery status Category: Surgical (6) Nexplanon in place: Comment: 2017 after childbirth at [facility], Nexplanon was replaced 07/26/2022 at [facility] Code(s): Z97.5 - Presence of (intrauterine) contraceptive device Category: Social Hx Plan -----Discussed in this visit the following: healthy balanced diet, regular and consistent exercise, getting recommended health screens, doing the best she can for her particular health concerns, kegel exercises, pap smear screening and followup recommendations, mammography screening and SBE, normal changes in cycles in her life stage--- . Teaching done about Kegel's and I gave her handout in Colombian I had her practice and she is able to increase her strength during the exam with several practice Kegel's. Discussed that because she had been overweight that puts increased stress over the years so this is important to get ahead of this issue. She says she does sometimes have some incontinence of urine. She is very happy with the Nexplanon and so we can used for almost the next 2 years if she continues to be happy with it. She is very happy with her weight loss and she continues to work at exercise and she will be adding lifting weights to it just to firm up her arms. Coding Level of Care Code Est Pt Prev Care 18-39y([id number]) Diagnoses Left breast mass N63.20 Pelvic floor weakness N81.89 Cervical cancer screening Z12.4 Well woman exam with routine gynecological exam Z01.419 S/P laparoscopic sleeve gastrectomy Z98.[address] Z97.5
== END 2023-10-03 15:58 | disposition home or self-care (01) ==
PROVIDERS: Visit Provider Advanced Practice Midwife
DX: Z01.419 Encounter for gynecological examination (general) (routine) without abnormal findings (principal); N63.20 Unspecified lump in the left breast, unspecified quadrant; N81.89 Other female genital prolapse; Z12.4 Encounter for screening for malignant neoplasm of cervix; Z98.84 Bariatric surgery status; Z97.5 Presence of (intrauterine) contraceptive device
CPT/HCPCS: 99395

== ENCOUNTER 2023-12-07 15:05 | Outpatient (AMB) | payer OTHER, SELFPAY ==
--- NOTE | 2023-12-07 15:06 | A.OFFPC_ITS ---
Vital Signs 3 12/07/23 15:16 Height 6 ft Weight 178 lb 4 oz BMI 24.2 BP 132/72 Blood Pressure Location Lt brachial Position Sitting Pulse 86 Pulse Source Pulse Oximeter Pulse Oximetry (%) 97 Oxygen Delivery Method Room Air Intake Visit Reasons: Annual Exam Take Out Waiter Required: No Accompanied by: Self / Same As Patient Allergies No Known Allergies [No Known Allergies*] Allergy (Verified 12/07/23 15:17) Medication List - Last Reconciled 12/07/23 by Kendra Hayden MD blood pressure monitor As directed etonogestrel (Nexplanon) subdermal Tobacco use date assessed: 08/08/23 Dental Screening Dental Screen Date: 08/08/23 HPI Annual Exam 2 HPI0 Details 33-year-old female with a history of lap aroscopic sleeve gastrectomy, hypertension, hypercholesterolemia generalized anxiety disorder coming in for physical exam. Last seen in August 2023. Patient did see the surgeon for the left breast mass biopsy fibroadenoma with usual ductal hyperplasia and focal apocrine metaplasia 2023 Benign. month has dizziness [facility] Medical History Encounter for removal and reinsertion of Nexplanon Anxiety Encounter for monitoring of etonogestrel implant Adult general medical exam Upper respiratory tract infection Gestational hypertension Hypercholesterolemia Insomnia Vitamin D deficiency Obesity (BMI 30-39.9) Hypertension Allergic otitis media of both ears Surgical History Hx of laparoscopy History of esophagogastroduodenoscopy (EGD) History of cholecystectomy Right ovarian cyst Social History (Updated 12/07/23 @ 15:53 by Kendra Hayden MD) Household Members: Spouse and Children Housing: Assisted Living Facility Are you a primary primary care nurse practitioner to a significant other at home: Yes (children) Do you presently have visiting nurse or other home services: No Alcohol intake: current Alcohol intake frequency: does not drink Comment: once Q 3 months 3 drinks Patient Tobacco Use Status: Never used Tobacco e-Cigarette/Vaping Use: Never Used Second Hand Smoke Exposure: No service: No Current occupational status: employed Cognitive needs: No Hearing needs: No Vision needs: No Female Reproductive History Menstrual Age of Menarche: 12 Questionnaire Thrive Questionnaire Date Thrive assessed: 08/08/23 DOMINIQUE-7 AMB Questionnaire DOMINIQUE-7 Date DOMINIQUE - 7 assessed: 08/08/23 Source: Developed by Drs. Carlos Torres, Felicia Barron, Rowdy Mora and colleagues, with an educational palak from [employer]. Review of Systems Const Denies poor appetite and Denies weakness Eyes Denies no additional complaints ENT Reports Normal hearing present, Denies dizziness, Denies nasal congestion, Denies tinnitus and Denies sore throat Card Denies chest pain, Denies syncope, Denies rapid heart rate and Denies dyspnea Resp Denies cough and Denies dyspnea GI Denies change in stool character, Reports constipation, Denies diarrhea, Denies nausea and Denies vomiting Denies urinary frequency, Denies difficulty voiding and Denies dysuria Neuro Reports Normal hearing present, Denies confusion, Denies dizziness, Denies syncope and Denies weakness Psych Denies confusion Physical exam (Primary Care) Vital Signs: Last Vital Signs Pulse 86 12/07/23 15:16 BP 132/72 12/07/23 15:16 Pulse Ox 97 12/07/23 15:16 Oxygen Delivery Method Room Air 12/07/23 15:16 BMI result Body Mass Index 24.2 Tobacco/Smoking Status: Tobacco use Status Tobacco use date assessed 08/08/23 12/07/23 15:07 Patient Tobacco Use Status Never used Tobacco 12/07/23 15:07 e-Cigarette/Vaping Use Never Used 12/07/23 15:07 Thrive Assessment: Date of Thrive Assessment Date Thrive assessed 08/08/23 12/07/23 15:07 Const General: No confusion Orientation/consciousness: No confusion HENMT Head: Yes normocephalic Ears: external ears normal and TM's normal bilaterally Face and sinus: Yes normal facial exam Mouth: moist mucous membranes Throat: Yes tonsils normal Eyes Conjunctivae: conjunctivae normal Pupils: Equal, round and reactive pupils present and Pupil accommodation reflex normal Direct Ophthalmoscopy: normal light reflex Neck Neck: No lymphadenopathy Thyroid: Thyroid normal Chest Chest palpation & inspection: normal inspection of the chest Chest/axillae images: 2 1. 2 x 3 cm tender mass on the 3 o'clock position Resp Effort & Inspection: normal respiratory effort and no audible wheezes Auscultation: clear to auscultation bilaterally, no crackles, no wheezes and lung sounds not diminished Cardio Rate: regular rate Rhythm: regular rhythm Peripheral pulses: radial pulses present and dorsalis pedis present GI Palpation (GI): no masses Auscultation: normal bowel sounds and normoactive bowel sounds Rectal Exam - Female: deferred Skin General skin exam: no rashes or lesions noted Rashes: no rashes Neuro General: No confusion Cranial nerves: Yes Equal, round and reactive pupils present and Yes Normal hearing present Cognition (Neuro): normal cognition Gait exam (Neuro): Normal gait present Motor exam (neuro): 5/5 motor strength present throughout Deep tendon reflexes (DTR's): Right brachioradialis reflex intensity grade: 2+, Left brachioradialis reflex intensity grade: 2+, Right patellar reflex intensity grade: 2+ and Left patellar reflex intensity grade: 2+ Extrem General: No edema Assessment and Plan Assessment & Plan (1) Annual physical exam: Code(s): Z00.00 - Encounter for general adult medical examination without abnormal findings Plan: Patient is advised to eat healthy, keep well hydrated, keep active and have adequate sleep. (2) S/P laparoscopic sleeve gastrectomy: Comment: Laparoscopic sleeve gastrectomy and gastropexy with lysis of adhesions and upper endoscopy September 2022 Code(s): Z98.84 - Bariatric surgery status Plan: Continue to follow-up with bariatric surgeon (3) Hypertension: Comment: Blood pressure is under control Code(s): I10 - Essential (primary) hypertension Plan: Blood pressure is under control (4) Hypercholesterolemia: Code(s): E78.00 - Pure hypercholesterolemia, unspecified Plan: Avoid fried foods, chicken skin, eggs, butter margarine, pastries and meat. 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 (7) Breast mass, right: Comment: 2 x 3 cm tender mass on the 3 o'clock position Code(s): N63.10 - Unspecified lump in the right breast, unspecified quadrant Plan: Will order for right diagnostic mammogram as well as an ultrasound of the right breast (8) Sacral pain: Code(s): M53.3 - Sacrococcygeal disorders, not elsewhere classified Orders: Orders 2 MM tomosynthesis diagnostic RT Today N63.10 - Unspecified lump in the right breast, unspecified quadrant US breast RT limited Today N63.10 - Unspecified lump in the right breast, unspecified quadrant XR sacrum coccyx min 2V Today M53.3 - Sacrococcygeal disorders, not elsewhere classified Medications: Refilled 2 lidocaine 5% (Lidoderm) leave on most painful area for up to 12 hrs 1 patch topical DAILY PRN 30 ea 0RF pain MDD remove after 12 hours M53.3 - Sacrococcygeal disorders, not elsewhere classified Coding Level of Care Code Est Pt Prev Care [id number]) Diagnoses Annual physical exam Z00.00 S/P laparoscopic sleeve gastrectomy Z98.84 Hypertension I10 Hypercholesterolemia E78.00 Generalized anxiety disorder F41.1 Left breast mass N63.20 Breast mass, right N63.10 Sacral pain M53.3
[2023-12-07 15:16] VITALS: BP 132/72; PULSE 86; O2SAT 97; BMI 24.2
== END 2023-12-07 16:12 | disposition home or self-care (01) ==
PROVIDERS: PCP Nurse Practitioner Family; Visit Provider Internal Medicine
DX: Z00.00 Encounter for general adult medical examination without abnormal findings (principal); Z98.84 Bariatric surgery status; I10 Essential (primary) hypertension; N63.22 Unspecified lump in the left breast, upper inner quadrant; N63.15 Unspecified lump in the right breast, overlapping quadrants; E78.00 Pure hypercholesterolemia, unspecified; F41.1 Generalized anxiety disorder; M53.3 Sacrococcygeal disorders, not elsewhere classified
CPT/HCPCS: 99395

== ENCOUNTER 2024-01-17 13:27 | Outpatient (REF) | payer OTHER, SELFPAY ==
--- NOTE | ~2024-01-17 | US_ITS ---
EXAMINATION: MM DIAGNOSTIC DIGITAL BREAST TOMOSYNTHESIS, RIGHT US BREAST LIMITED, RIGHT MAMMOGRAPHY: CLINICAL INFORMATION: Diagnostic exam right breast for palpable and somewhat tender quarter-sized lump approximate 3:00 location, posterior one third. History of biopsy left breast 09/12/2023 yielding benign fibroadenoma. COMPARISON: Mammography: 09/06/2023 TECHNIQUE: Digital breast tomosynthesis is performed in both the craniocaudal and mediolateral oblique views along with computer-aided detection (CAD). Synthesized 2D images are generated from the tomosynthesis. In addition, full-field right 3-D ML view was obtained, as well as 3-D spot compression right CC and MLO views. This was followed by targeted right breast ultrasound. FINDINGS: The breasts are heterogeneously dense, which may obscure small masses (ACR BI-RADS breast composition Category c). There are no suspicious masses, suspicious grouped calcifications, or areas of architectural distortion in the right breast. The heterogeneously dense parenchymal pattern is stable from prior exams. There is no skin or axillary abnormality. There is no mammographic abnormality in the region of palpable concern 3:00 axis posterior right breast. ULTRASOUND: CLINICAL INFORMATION: As above. COMPARISON: 09/06/2023 TECHNIQUE: Targeted sonographic evaluation right breast was performed using a high frequency linear transducer. Right breast was scanned from the 1:00 to the 4:00 positions to include the 3:00 region of palpable concern as identified by the patient. Selected archived documentation. FINDINGS: RIGHT BREAST: There is heterogeneously dense breast tissue present. There are no discrete masses, cystic abnormalities, areas of abnormal shadowing, or regions of architectural distortion identified in the 1:00 to 4:00 right breast to explain the 3:00 region of palpable concern. Only normal breast tissue is seen. US/US breast RT limited mamm only IMPRESSION: There are no findings suspicious for malignancy in the right breast. Area of palpable abnormality in the 3:00 axis posterior one third demonstrates no sonographic or mammographic correlate. Recommend clinical management. Otherwise, recommend the patient resume routine annual screening mammography. OVERALL ASSESSMENT: Mammography: BI-RADS 1 - Negative Ultrasound: BI-RADS 1 - Negative RECOMMENDATION: 1. Patient should be managed based on the clinical impression. Decision to proceed with biopsy should be based on clinical grounds and degree of clinical concern. 2. Otherwise, routine annual screening mammography at age 39. Results were provided to the patient at time of visit by the technologist.
== END 2024-01-17 13:28 | disposition home or self-care (01) ==
LOC: HO.MAMMO 13:27
PROVIDERS: PCP Internal Medicine; Visit Provider Internal Medicine
DX: N63.15 Unspecified lump in the right breast, overlapping quadrants (principal)
CPT/HCPCS: 76642; 77061; 77065

== ENCOUNTER → 2024-01-17 13:30 | Outpatient (BNV) | payer OTHER, SELFPAY | PROVIDERS: PCP Internal Medicine; Visit Provider Radiology Diagnostic Radiology | DX: N63.15 Unspecified lump in the right breast, overlapping quadrants (principal) | CPT/HCPCS: 76642; 77061; 77065 ==